=== PATIENT | female | born 1985 | race Caucasian/White ===

== ENCOUNTER 2016-08-18 17:03 | Emergency (ER) | payer OTHER ==
[2016-08-18 17:15] VITALS: BP 150/94; PULSE 107; TEMP 98.5; BMI 39.4
[2016-08-18] MEDS ORDERED: ALBUTEROL SO4 2.5/IPRATROPIUM 0.5 INH SOL 3 ML VIAL.NEB. NEB ONE ×4 (18:58→19:44)
[2016-08-18] MEDS ORDERED: predniSONE 20 MG TABLET (UD) ONE (18:59)
[2016-08-18] MEDS ORDERED: predniSONE 20 MG TABLET (UD) PO ONE (19:02)
--- NOTE | 2016-08-18 19:06 | PDOC ---
History of Present Illness - General Chief Complaint: Asthma Stated Complaint: ASTHMA/CHEST TIGHTNESS Time Seen by Provider: 08/18/16 19:02 History Source: Patient Exam Limitations: No Limitations - History of Present Illness Initial Comments: 08/18/16 19:03 31 yr female with cough wheezing for 3 days. Pt had URI symptoms last week now has cough , pt able to speak full sentences. no history of intubations, history of DM. Associated Symptoms: reports: cough Past History - Past Medical History Allergies/Adverse Reactions: Allergies Allergy/AdvReac Type Severity Reaction Status Date / Time No Known Allergies Allergy Verified 08/18/16 17:11 Home Medications: Ambulatory Orders Albuterol Sulfate Inhaler - [Ventolin HFA Inhaler -] 1 - 2 inh PO QID PRN Ondansetron [Zofran *Odt*] 4 mg SL TID #30 od.tablet 10/22/15 Albuterol Sulfate Inhaler - [Ventolin HFA Inhaler -] 1 - 2 inh PO Q4H #1 inhaler 08/18/16 Prednisone [Deltasone -] 40 mg PO DAILY #10 tablet 08/18/16 Asthma: Yes Diabetes: Yes Other medical history: obesity - Immunization History Immunization Up to Date: No - Psycho/Social/Smoking Cessation Hx Anxiety: No Suicidal Ideation: No Smoking History: Never smoked Have you smoked in the past 12 months: No Number of Cigarettes Smoked Daily: 0 Hx Alcohol Use: No Drug/Substance Use Hx: No Substance Use Type: None *Physical Exam - Vital Signs Last Vital Signs Temp Pulse Resp BP Pulse Ox 98.5 F 107 H 19 150/94 96 08/18/16 17:12 08/18/16 17:12 08/18/16 17:12 08/18/16 17:12 08/18/16 17:12 - Physical Exam General Appearance: Yes: Nourished, Appropriately Dressed HEENT: positive: EOMI, [place], TMs Normal, Pharynx Normal, Nasal Congestion Neck: negative: Tender Respiratory/Chest: positive: Normal Breath Sounds, Wheezing. negative: Chest Tender, Respiratory Distress Cardiovascular: positive: Regular Rhythm, Regular Rate Gastrointestinal/Abdominal: positive: Normal Bowel Sounds, Soft Musculoskeletal: positive: Normal Inspection Extremity: positive: Normal Capillary Refill, Normal Inspection, Normal Range of Motion Integumentary: positive: Normal Color, Dry, Warm Neurologic: positive: Fully Oriented, Alert, Normal Mood/Affect, Normal Response , Motor Strength 09/15 Medical Decision Making - Medical Decision Making 08/18/16 19:08 cc: asthma attack 2 days wheezing no fever, pulse ox 96% pt able to speak full sentences mild distress. 08/18/16 19:39 duoneb x3 prednisone 60mg 08/18/16 20:00 pulse ox 98% on room air after second duoneb signed out to Amie Garza LEGAL DIRECTOR for further management. CXR pending, mild exp wheeze will give third duoneb . 08/19/16 07:30 *DC/Admit/Observation/Transfer Diagnosis at time of Disposition: Acute asthma exacerbation Qualifiers: Asthma severity: mild intermittent Qualified Code(s): J45.21 - Mild intermittent asthma with (acute) exacerbation - Discharge Dispostion Disposition: HOME Condition at time of disposition: Improved - Prescriptions Prescriptions: Prednisone [Deltasone -] 40 mg PO DAILY #10 tablet Albuterol Sulfate Inhaler - [Ventolin HFA Inhaler -] 1 - 2 inh PO Q4H #1 inhaler - Referrals Referrals: Rolando Lemons MD [Staff Physician] - - Patient Instructions Printed Discharge Instructions: Asthma -- Adult Additional Instructions: drink pleanty of water to stay well hydrated take prednisone as directed next dose tomorrow morning use albuterol inhaler as directed follow with your doctor or the pulmonary doctor next week call Sunday to make appointment return to ER for any worsening symptoms
== END 2016-08-18 21:26 | disposition home or self-care (01) ==
LOC: JERFT 17:03
PROC: 3E0F7GC Introduction of Other Therapeutic Substance into Respiratory Tract, Via Natural or Artificial Opening (ICD-10-PCS; principal; 2016-08-18)
PROC: 3E0F7GC Introduction of Other Therapeutic Substance into Respiratory Tract, Via Natural or Artificial Opening (ICD-10-PCS; 2016-08-18)
DX: J45.21 Mild intermittent asthma with (acute) exacerbation (principal); E11.9 Type 2 diabetes mellitus without complications
CPT/HCPCS: 84703; 94640; 99281-25

== ENCOUNTER 2016-10-30 21:34 | Emergency (ER) | payer OTHER ==
[2016-10-30 21:48] VITALS: BP 123/85; PULSE 68; TEMP 98.6; BMI 38.0
[2016-10-30] MEDS ORDERED: IBUPROFEN 400 MG TABLET (FP) PO ONE ×2 (21:48→21:59)
--- NOTE | 2016-10-30 21:51 | PDOC ---
Rapid Medical Evaluation Chief Complaint: Sore Throat Time Seen by Provider: 10/30/16 21:47 Medical Evaluation: Allergies Allergy/AdvReac Type Severity Reaction Status Date / Time No Known Allergies Allergy Verified 08/18/16 17:11 10/30/16 21:47 I have performed a brief in-person evaluation of this patient. The patient presents with a chief complaint of: sore throat and fever Pertinent physical exam findings: Stable w/ no obvious tonsilar enlargement or exudates I have ordered the following: rapid strep and motrin The patient will proceed to the ED for further evaluation. 10/30/16 21:50
[2016-10-30] MEDS ORDERED: IBUPROFEN 600 MG TABLET (FP) PO ONE (21:59)
--- NOTE | 2016-10-30 22:09 | PDOC ---
History of Present Illness - General Chief Complaint: Sore Throat Stated Complaint: NECK PAIN Time Seen by Provider: 10/30/16 21:47 History Source: Patient Exam Limitations: No Limitations - History of Present Illness Initial Comments: 10/30/16 22:02 c/o sore throat for 7 days. no fever or chills. pt has history of asthma. no fever no chills. Associated Symptoms: denies: denies symptoms Past History - Past Medical History Allergies/Adverse Reactions: Allergies Allergy/AdvReac Type Severity Reaction Status Date / Time No Known Allergies Allergy Verified 10/30/16 21:48 Home Medications: Ambulatory Orders Albuterol Sulfate Inhaler - [Ventolin HFA Inhaler -] 1 - 2 inh PO QID PRN Ondansetron [Zofran *Odt*] 4 mg SL TID #30 od.tablet 10/22/15 Albuterol Sulfate Inhaler - [Ventolin HFA Inhaler -] 1 - 2 inh PO Q4H #1 inhaler 08/18/16 Prednisone [Deltasone -] 40 mg PO DAILY #10 tablet 08/18/16 Penicillin V Potassium [Pen Vee K -] 500 mg PO BID #20 tablet 10/30/16 Asthma: Yes Diabetes: Yes HTN: Yes - Immunization History Immunization Up to Date: No - Psycho/Social/Smoking Cessation Hx Anxiety: No Suicidal Ideation: No Smoking History: Never smoked Have you smoked in the past 12 months: No Number of Cigarettes Smoked Daily: 0 Hx Alcohol Use: No Drug/Substance Use Hx: No Substance Use Type: None Review of Systems - Review of Systems Able to Perform ROS?: Yes Comments:: 10/30/16 22:03 Is the patient limited Telugu proficient: No Constitutional: No: Symptoms Reported HEENTM: Yes: Symptoms Reported Respiratory: No: Symptoms reported Cardiac (ROS): No: Symptoms Reported ABD/GI: No: Symptoms Reported : No: Symptoms Reported Musculoskeletal: No: Symptoms Reported Integumentary: No: Symptoms Reported Neurological: No: Symptoms reported *Physical Exam - Vital Signs Last Vital Signs Temp Pulse Resp BP Pulse Ox 98.6 F 68 18 123/85 99 10/30/16 21:44 10/30/16 21:44 10/30/16 21:44 10/30/16 21:44 10/30/16 21:44 - Physical Exam General Appearance: Yes: Nourished, Appropriately Dressed HEENT: positive: EOMI, [place], TMs Normal, Pharynx Normal Neck: positive: Supple. negative: Tender, Lymphadenopathy (R), Lymphadenopathy (L) Respiratory/Chest: positive: Lungs Clear, Normal Breath Sounds. negative: Wheezing Cardiovascular: positive: Regular Rhythm, Regular Rate Gastrointestinal/Abdominal: positive: Normal Bowel Sounds, Soft Musculoskeletal: positive: Normal Inspection Extremity: positive: Normal Capillary Refill, Normal Inspection, Normal Range of Motion Integumentary: positive: Normal Color, Dry, Warm Neurologic: positive: Fully Oriented, Alert, Normal Mood/Affect, Normal Response , Motor Strength 09/15 ED Treatment Course - Medications Given in the ED: ED Medications Discontinued Medications Generic Name Dose Route Start Last Admin Trade Name Emmanuelq PRN Reason Stop Dose Admin Ibuprofen 800 mg 10/30/16 21:48 10/30/16 22:01 Motrin - PO 10/30/16 21:49 800 mg ONCE ONE Administration Ibuprofen 600 mg 10/30/16 21:59 10/30/16 22:02 Motrin - PO 10/30/16 22:00 Not Given ONCE ONE Medical Decision Making - Medical Decision Making 10/30/16 22:10 cc: sore throat for 7 days no fever non toxic eating and drinking well will get rapid strep motrin for pain 10/30/16 22:12 positive strep throat *DC/Admit/Observation/Transfer Diagnosis at time of Disposition: Strep throat - Discharge Dispostion Disposition: HOME Condition at time of disposition: Good - Prescriptions Prescriptions: Penicillin V Potassium [Pen Vee K -] 500 mg PO BID #20 tablet - Patient Instructions Additional Instructions: gargle with warm salt water 4-5 times a day take motrin for pain every 6hrs take the Amoxicillin as directed for 10 days follow with your medical doctor for follow up
== END 2016-10-30 22:22 | disposition home or self-care (01) ==
LOC: JERFT 21:34
DX: J02.0 Streptococcal pharyngitis (principal); J45.909 Unspecified asthma, uncomplicated; E11.9 Type 2 diabetes mellitus without complications; I10 Essential (primary) hypertension
CPT/HCPCS: 87070; 87077; 87430; 99281-25

== ENCOUNTER 2017-05-20 11:16 | Emergency (ER) | payer OTHER ==
[2017-05-20 11:20] VITALS: BP 137/86; PULSE 84; TEMP 97; BMI 39.4
[2017-05-20] MEDS ORDERED: KETOROLAC TROMETHAMINE 60 MG/2 ML VIAL IM ONE (12:33)
[2017-05-20] MEDS ORDERED: KETOROLAC TROMETHAMINE 60 MG/2 ML VIAL ONE (12:39)
--- NOTE | 2017-05-20 12:43 | PDOC ---
History of Present Illness - General Chief Complaint: Back Pain Stated Complaint: INJURY Time Seen by Provider: 05/20/17 11:27 - History of Present Illness Initial Comments: 05/20/17 12:34 CHIEF COMPLAINT: low back pain HISTORY OF PRESENT ILLNESS: 31 yo F with no PMH presents to [facility] with lower back pain s/p fall yesterday. Patient states she slipped on ice and fell straight onto her tailbone, and the pain worsened today. She denies any pain or loss of sensation to her legs, denies any loss of bowel or bladder function. PAST MEDICAL HISTORY: Denies past medical history FAMILY HISTORY: Denies SOCIAL HISTORY: Denies tobacco, alcohol, illicit drug use. SURGICAL HISTORY: Denies ALLERGIES: No known drug allergies REVIEW OF SYSTEMS General/Constitutional: Denies fever or chills. HEENT: Denies change in vision. Denies ear pain or discharge. Denies sore throat. Cardiovascular: Denies chest pain or shortness of breath. Gastrointestinal: No loss of bowel function. Denies nausea, vomiting, diarrhea or constipation. Denies rectal bleeding. Genitourinary: No loss of bladder function. Denies dysuria, frequency, or change in urination. Musculoskeletal: Low back pain. Denies joint or muscle swelling or pain. Denies neck or back pain. Skin and breasts: Denies rash or easy bruising. Neurologic: Denies vertigo, loss of consciousness, or loss of sensation. PHYSICAL EXAM General Appearance: Well-appearing, appropriately dressed. No apparent distress , no intoxication. HEENT: EOMI, PERRLA, normal ENT inspection, normal voice, TMs normal, pharynx normal. No conjunctival pallor. No photophobia, scleral icterus. Neck: Supple. Trachea midline. No tenderness, rigidity, carotid bruit, stridor , lymphadenopathy, or thyromegaly. Respiratory/Chest: Lungs CTAB. No shortness of breath, chest tenderness, respiratory distress, accessory muscle use. No crackles, rales, rhonchi, stridor , wheezing, dullness Cardiovascular: RRR. S1, S2. No JVD, murmur, bradycardia, tachycardia. Vascular Pulses: Dorsalis-Pedis (R): 2+, Dorsalis-Pedis (L): 2+ Gastrointestinal/Abdominal: Normal bowel sounds. Abdomen soft, non-distended. No tenderness or rebound tenderness. No organomegaly, pulsatile mass, guarding , hernia, hepatomegaly, splenomegaly. Lymphatic: No adenopathy, tenderness. Musculoskeletal/Extremities: Tenderness to b/l paravertebral muscles at L5. No midline tenderness to spine, sensory discrimination intact to b/l legs. FROM of all extremities, normal capillary refill. Pelvis Stable. No CVA tenderness. No tenderness to extremities, pedal edema, swelling, erythema or deformity. Integumentary: Appropriate color, dry, warm. No cyanosis, erythema, jaundice or rash Neurologic: family practice md II-XII intact. Fully oriented, alert. Appropriate mood/affect. Motor strength 5/5. No appreciable EOM palsy, facial droop or sensory deficit. 05/20/17 12:49 Past History - Past Medical History Allergies/Adverse Reactions: Allergies Allergy/AdvReac Type Severity Reaction Status Date / Time No Known Allergies Allergy Verified 05/20/17 11:20 Home Medications: Ambulatory Orders Cyclobenzaprine HCl 10 mg PO HS #7 tablet 05/20/17 Diclofenac Sodium [Voltaren -] 75 mg PO BID #14 tablet. 05/20/17 Asthma: Yes COPD: No Diabetes: Yes HTN: Yes - Immunization History Immunization Up to Date: No - Suicide/Smoking/Psychosocial Hx Smoking History: Never smoked Have you smoked in the past 12 months: No Number of Cigarettes Smoked Daily: 0 Hx Alcohol Use: No Drug/Substance Use Hx: No Substance Use Type: None *Physical Exam - Vital Signs Last Vital Signs Temp Pulse Resp BP Pulse Ox 97 F L 84 18 137/86 99 05/20/17 11:18 05/20/17 11:18 05/20/17 11:18 05/20/17 11:18 05/20/17 11:18 ED Treatment Course - ADDITIONAL ORDERS Additional order review: Laboratory Results 05/20/17 12:09 Urine HCG, Qual Negative - RADIOLOGY Radiology Studies Ordered: Category Date Time Status SPINE-LUMBAR SACRAL [RAD] Stat Radiology 05/20/17 11:53 Ordered Medical Decision Making - Medical Decision Making 05/20/17 12:43 31 yo F with no PMH presents to [facility] with lower back pain s/p fall yesterday. Patient is 18 days and . -upreg upreg negative -Lumbar sacral x-ray -Toradol IM 05/20/17 13:03 Will treat with NSAIDS, cyclobenzaprine. Rx's sent to pharm. Advised patient to take medication as prescribed and follow up with ortho within a week. Advised patient of signs and symptoms for return to ED. Patient verbalized understanding and agrees to plan. *DC/Admit/Observation/Transfer Diagnosis at time of Disposition: Low back pain Qualifiers: Chronicity: unspecified Back pain laterality: bilateral Sciatica presence: without sciatica Qualified Code(s): M54.5 - Low back pain - Discharge Dispostion Disposition: HOME Condition at time of disposition: Stable Admit: No - Prescriptions Prescriptions: Cyclobenzaprine HCl 10 mg PO HS #7 tablet Diclofenac Sodium [Voltaren -] 75 mg PO BID #14 tablet.dr - Referrals Referrals: Jeff Yeboah MD [Staff Physician] - - Patient Instructions Printed Discharge Instructions: DI for Low Back Pain Additional Instructions: Please take medications as prescribed. As discussed, do NOT drive, drink alcohol , or operate machinery while taking cyclobenzaprine. Follow up with orthopedics next week for further evaluation if symptoms persist. If you develop any loss of sensation to your legs, loss of bowel or bladder function, or any new or worsening symptoms, please return to the ER. - Post Discharge Activity Forms/Work/School Notes: Back to Work
== END 2017-05-20 13:17 | disposition home or self-care (01) ==
LOC: JERFT 11:16
PROC: 3E0233Z Introduction of Anti-inflammatory into Muscle, Percutaneous Approach (ICD-10-PCS; principal; 2017-05-20)
DX: M54.5 Low back pain (principal); W00.2XXA Other fall from one level to another due to ice and snow, initial encounter; Y93.89 Activity, other specified; Y92.89 Other specified places as the place of occurrence of the external cause; Y99.8 Other external cause status
CPT/HCPCS: 72100-TC; 84703; 96372; 99281-25

== ENCOUNTER 2017-11-04 21:06 | Emergency (ER) | payer OTHER ==
[2017-11-04 21:15] VITALS: BP 145/89; PULSE 86; TEMP 98; BMI 37.9
[2017-11-04] MEDS ORDERED: DEXAMETHASONE LIQUID 0.5 MG/5 ML 240 ML BULK BOTTLE PO ONE (21:38)
--- NOTE | 2017-11-04 21:43 | PDOC ---
History of Present Illness - General Chief Complaint: Asthma Stated Complaint: DIFICULTY BREATHING Time Seen by Provider: 11/04/17 21:38 - History of Present Illness Initial Comments: 11/04/17 21:39 32 y/o F with PMH of asthma and HTN with exacerbation of asthma today without relief from home inhaler. She is on prednisone at home and she took 20 mg's today, she has never been intubated or hospitalized for asthma. Past History - Past Medical History Allergies/Adverse Reactions: Allergies Allergy/AdvReac Type Severity Reaction Status Date / Time No Known Allergies Allergy Verified 11/04/17 21:15 Home Medications: Ambulatory Orders Albuterol 0.083% Nebulizer Ayesha [Ventolin 0.083%] 1 neb NEB Q4H 11/04/17 Albuterol Sulfate [Proair Hfa] 8.5 gm IH ASDIR PRN 11/04/17 Amlodipine Besylate 2.5 mg PO DAILY 11/04/17 Prednisone [Deltasone] 20 mg PO DAILY 11/04/17 SYMBICORT 160/4.5mcg - 2 puff IH DAILY 11/04/17 Asthma: Yes COPD: No Diabetes: Yes HTN: Yes - Immunization History Immunization Up to Date: No - Suicide/Smoking/Psychosocial Hx Smoking History: Never smoked Have you smoked in the past 12 months: No Number of Cigarettes Smoked Daily: 0 Information on smoking cessation initiated: No Hx Alcohol Use: No Drug/Substance Use Hx: No Substance Use Type: None Review of Systems - Review of Systems Comments:: NCAT EYES: EOMI ENT: Nares patent, ear canals and TM's normal HEART: S1 S2 normal Respiratory: diffuse expiratory wheezing no ronchi Abdomen: Soft NT ND Extremities: Full ROM Neuro: normal karthik and affect without deficits. 11/04/17 21:40 Respiratory: Yes: See HPI, Cough, Wheezing All Other Systems: Reviewed and Negative *Physical Exam - Vital Signs Last Vital Signs Temp Pulse Resp BP Pulse Ox 98.0 F 86 16 145/89 99 11/04/17 21:13 11/04/17 21:13 11/04/17 21:13 11/04/17 21:13 11/04/17 21:13 - Physical Exam Comments: NCAT EYES: EOMI ENT: Nares patent, ear canals and TM's normal HEART: S1 S2 normal Respiratory: diffuse expiratory wheezing no ronchi Abdomen: Soft NT ND Extremities: Full ROM Neuro: normal karthik and affect without deficits. 11/04/17 21:43 Medical Decision Making - Medical Decision Making I will start duo nebs and give decadron 11/04/17 21:43 11/04/17 22:59 no wheezing after second duo neb *DC/Admit/Observation/Transfer Diagnosis at time of Disposition: Asthma - Discharge Dispostion Disposition: HOME Condition at time of disposition: Improved Decision to Admit order: No - Referrals Referrals: Amol Beach MD [Non Staff, Medical] - Mehdi Simeon MD [Staff Physician] - Lalo Amaro MD [Non Staff, Medical] - Marylin Polanco MD [Non Staff, Medical] - Rolando Fofana MD [Non Staff, Medical] - Ross Rashid MD [Non Staff, Medical] - Lowell Shepard MD [Non Staff, Medical] - Jeff La MD [Non Staff, Medical] - - Patient Instructions Printed Discharge Instructions: Asthma -- Adult Additional Instructions: Please continue to use your home albuterol as needed. If your symptoms worsen return to the ER for futher evaluation, I have given you a list of local incident handler to follow up with please follow up with pulmonology in the next 1- 2 days for futher evaluation and treatment options. You were given a dose of steroids in the emergency room. you do not need to take your home steroids for the next 2 days. - Post Discharge Activity
[2017-11-04] MEDS: ALBUTEROL SO4 2.5/IPRATROPIUM 0.5 INH SOL 3 ML VIAL.NEB. NEB SCH (22:56)
== END 2017-11-04 23:06 | disposition home or self-care (01) ==
LOC: JERFT 21:06
PROC: 3E0F7GC Introduction of Other Therapeutic Substance into Respiratory Tract, Via Natural or Artificial Opening (ICD-10-PCS; principal; 2017-11-04)
PROC: 3E0F7GC Introduction of Other Therapeutic Substance into Respiratory Tract, Via Natural or Artificial Opening (ICD-10-PCS; 2017-11-04)
DX: J45.901 Unspecified asthma with (acute) exacerbation (principal); I10 Essential (primary) hypertension; E11.9 Type 2 diabetes mellitus without complications
CPT/HCPCS: 94640; 99281-25; J7620

== ENCOUNTER 2018-09-03 16:07 | Observation (INO) | payer OTHER ==
[2018-09-03 16:23] VITALS: BMI 35.4
--- NOTE | 2018-09-03 16:24 | PDOC ---
Rapid Medical Evaluation Chief Complaint: Chest Pain Time Seen by Provider: 09/03/18 16:20 Medical Evaluation: Allergies Allergy/AdvReac Type Severity Reaction Status Date / Time No Known Allergies Allergy Verified 11/04/17 21:15 09/03/18 16:22 I did a brief in person evaluation on this patient. CC: right sided CP HPI: Pt is a 33 YO female who complains of right sided CP x 1 day. Denies cough. Denies CV hx. Pt has a hx of HTN, DM and asthma. PE: Skin: Clear Chest: I can duplicate the pain upon palpation. Lungs: Clear Heart:RRR MS: Moves all extremities without difficulty Neuro: alert Psych: appropriate affect. I have ordered: CV protocol Pt will proceed to main ED for further evaluation. Discharge Disposition - Diagnosis Chest pain Qualifiers: Chest pain type: unspecified Qualified Code(s): R07.9 - Chest pain, unspecified - Referrals - Patient Instructions - Post Discharge Activity
--- NOTE | 2018-09-03 17:05 | PDOC ---
History of Present Illness - General Chief Complaint: Chest Pain Stated Complaint: Chest Pain Time Seen by Provider: 09/03/18 16:20 - History of Present Illness Initial Comments: 33 year old Thai speaking female with PMH of NIDDM, HTN, and asthma presenting with chest pain of sudden onset around 11 AM today. States that her pain is left sided and occasionally radiates to her left shoulder. Denies any SOB, nausea, vomiting, or other symptoms. Denies any chest trauma, recent increase in activity, or recent travel. She has had this chest pain in the past which has relieved after Advil use. She did not take any Advil today. Stats that the pain is worse with deep inspiration. She did have some mild blurry vision earlier but did not eat antyhign today because she did not have an appetite. Chest pain is not worse with movement or positional and it has gotten better but not completely remitted. No concerning family cardiac history or history of smoking. Denies, fevers, chills, cough, vomiting, or diarrhea. 09/03/18 17:45 Past History - Past Medical History Allergies/Adverse Reactions: Allergies Allergy/AdvReac Type Severity Reaction Status Date / Time No Known Allergies Allergy Verified 11/04/17 21:15 Home Medications: Ambulatory Orders Albuterol 0.083% Nebulizer Ayesha [Ventolin 0.083%] 1 neb NEB Q4H 11/04/17 Albuterol Sulfate [Proair Hfa] 8.5 gm IH ASDIR PRN 11/04/17 Amlodipine Besylate 2.5 mg PO DAILY 11/04/17 Prednisone [Deltasone] 20 mg PO DAILY 11/04/17 SYMBICORT 160/4.5mcg - 2 puff IH DAILY 11/04/17 Asthma: Yes COPD: No DVT: No Diabetes: Yes HTN: Yes - Surgical History Cholecystectomy: No - Immunization History Immunization Up to Date: No - Suicide/Smoking/Psychosocial Hx Smoking History: Never smoked Have you smoked in the past 12 months: No Number of Cigarettes Smoked Daily: 0 Information on smoking cessation initiated: No Hx Alcohol Use: No Drug/Substance Use Hx: No Substance Use Type: None Review of Systems - Review of Systems Constitutional: No: Chills, Diaphoresis, Loss of Appetite, Weakness HEENTM: Yes: Blurred Vision. No: Tearing Respiratory: No: Cough, Shortness of Breath Cardiac (ROS): Yes: Chest Pain. No: Irregular Heart Rate ABD/GI: Yes: Nausea, Poor Appetite, Poor Fluid Intake. No: Diarrhea, Vomiting : No: Dysuria, Discharge Musculoskeletal: No: Back Pain, Joint Pain, Joint Swelling Integumentary: No: Bruising, Change in Color, Lesions Neurological: No: Headache, Numbness, Paresthesia, Tremors, Weakness *Physical Exam - Vital Signs Last Vital Signs Temp Pulse Resp BP Pulse Ox 98.4 F 75 16 140/83 98 09/03/18 16:21 09/03/18 16:21 09/03/18 16:21 09/03/18 16:21 09/03/18 16:21 Heart Score/ECG Review - History History: Moderately suspicious - Electrocardiogram EKG: Non specific repolarization disturbance - Age Age: </= 45 - Risk Factors Risk Factors Heart Score: Yes Hx Hypertension, Yes Hx Diabetes, Yes Hx Obesity Based on the list above the patient has:: >/=3 risk factors or Hx atherosclerotic disease - Troponin Troponin: </= normal limit - Score Heart Score - Total: 4 ED Treatment Course - LABORATORY CBC & Chemistry Diagram: 09/03/18 16:55 09/03/18 16:55 Medical Decision Making - Medical Decision Making 33 year old female presenting with chest pain and a HS of 4. EKG demonstrating lateral wall T wave inversions which we believe are new because her self reported previous EKG was read to her as normal. Troponins neg x2 We discussed the patient and transmitted the EKGs to Dr. Aldridge who recommended that she be tele observed and and echo performed tomorrow. Orders placed and discussed with hospitalist. 09/03/18 20:40 *DC/Admit/Observation/Transfer Diagnosis at time of Disposition: Chest pain Qualifiers: Chest pain type: unspecified Qualified Code(s): R07.9 - Chest pain, unspecified - Discharge Dispostion Condition at time of disposition: Stable Decision to Admit order: Yes - Referrals Referrals: ON STAFF,NOT [Primary Care Provider] - - Patient Instructions - Post Discharge Activity
[2018-09-03 17:25] LABS: BASO % 1.2 % (0-2.0); EOS % 2.1 % (0-4.5); HEMATOCRIT 33.1 % (32.4-45.2); HEMOGLOBIN 11.1 GM/dL (10.7-15.3); LYMPH % 40.1 % (8-40); MCH 26.7 pg (25.7-33.7); MCHC 33.5 g/dl (32.0-36.0); MEAN CELL VOLUME 79.7 fl (80-96); MEAN PLT VOLUME 9.2 fl (7.5-11.1); MONO % 10.6 % (3.8-10.2); PLATELET COUNT 407 K/MM3 (134-434); RBC 4.15 M/mm3 (3.60-5.2); RDW 16.3 % (11.6-15.6); WHITE BLOOD COUNT 6.3 K/mm3 (4.0-10.0)
[2018-09-03 17:39] LABS: INR 1.06 (0.83-1.09); PROTHROMBIN TIME (PATIENT) 12.5 SEC (9.7-13.0)
[2018-09-03] MEDS ORDERED: ACETAMINOPHEN 500 MG TABLET (FP) PO ONE (17:49)
[2018-09-03 17:55] LABS: ALBUMIN 3.7 g/dl (3.4-5.0); ALK PHOS 53 U/L (45-117); ANION GAP 6 MMOL/L (8-16); BILIRUBIN,TOTAL 0.4 mg/dL (0.2-1); BLOOD UREA NITROGEN 15 mg/dL (7-18); CALCIUM 9.2 mg/dL (8.5-10.1); CHLORIDE 102 mmol/L (98-107); CO2 26 mmol/L (21-32); CREATININE 0.5 mg/dL (0.55-1.3); GLUCOSE,RANDOM 82 mg/dL (74-106); MAGNESIUM 2.2 mg/dL (1.8-2.4); POTASSIUM 4.1 mmol/L (3.5-5.1); SGOT/AST 13 U/L (15-37); SGPT/ALT 16 U/L (13-61); SODIUM 134 mmol/L (136-145); TOT PROT 8.1 g/dl (6.4-8.2)
[2018-09-03] MEDS ORDERED: ACETAMINOPHEN 325 MG TABLET (FP) ONE (17:58)
--- NOTE | 2018-09-03 18:04 | PDOC ---
Documentation entered by Jonelle Boyd SCRIBE, acting as scribe for Rey Mckeon MD. Rey Mckeon MD: This documentation has been prepared by the Deb chavarria Amanda, SCRIBE, under my direction and personally reviewed by me in its entirety. I confirm that the documentation accurately reflects all work, treatment, procedures, and medical decision making performed by me. Attending Attestation - Resident Resident Name: ChanelleArianasuniselene - ED Attending Attestation I have performed the following: I have examined & evaluated the patient, The case was reviewed & discussed with the resident, I agree w/resident's findings & plan, Exceptions are as noted - HPI HPI: 09/03/18 17:34 The patient is a 33 year old female with a significant past medical history of asthma and hypertension who presents to the ED with complaint of sudden onset of chest pain at 9AM this morning. She reports the pain is left sided with intermittent radiation to her left shoulder. Pt denies SOB. States that the pain is pressure-like. Not worsened with exertion or deep inspiration. 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 The patient denies SOB, headache, palpitations, dizziness. The patient denies fevers, chills, nausea, vomiting, diarrhea, or constipation. The patient denies hematuria, dysuria, frequency, or urgency. - Physicial Exam PE: 09/03/18 17:51 GENERAL: Awake, alert, and fully oriented, in no acute distress. HEAD: No signs of trauma EYES: PERRLA, EOMI, sclera anicteric, conjunctiva clear ENT: Auricles normal inspection, hearing grossly normal, nares patent, oropharynx clear without exudates. Moist mucosa NECK: Nontender, no stepoffs, Normal ROM, supple, no lymphadenopathy, JVD, or masses LUNGS: Breath sounds equal, clear to auscultation bilaterally. No wheezes, and no crackles HEART: Regular rate and rhythm, normal S1 and S2, no murmurs, rubs or gallops ABDOMEN: Soft, nontender, normoactive bowel sounds. No guarding, no rebound. No masses EXTREMITIES: Normal range of motion, no edema. No clubbing or cyanosis. No cords, erythema, or tenderness NEUROLOGICAL: Cranial nerves II through XII intact. 5/5 strength and sensation in all extremities, Normal speech, normal gait, normal cerebellar function SKIN: Warm, Dry, normal turgor, no rashes or lesions noted. - Medical Decision Making 09/03/18 18:29 33 F with HTN, DM presenting to ED with L sided chest pain. Pain is not exertional, very atypical in nature. However, pt with EKG that shows lateral TWIs. Will r/o ACS with serial troponins. She has some risk factors for ACS but given age, this is still an unlikely diagnosis. Pt PERC score 0, making PE unlikely. - Labs, trop x2 - CXR - Aspirin 09/03/18 18:30 Labs wnl Trop negative x1 Repeat EKG stable with lateral TWIs unchanged Will repeat 2nd trop after 4 hours and obtain another EKG 09/03/18 18:42 Pt signed out to oncoming attending at 7pm, pending 2nd troponin and repeat EKG Heart Score/ECG Review - History History: Slightly suspicious - Electrocardiogram EKG: Non specific repolarization disturbance - Age Age: </= 45 - Risk Factors Risk Factors Heart Score: Yes Hx Hypertension, Yes Hx Diabetes, Yes Hx Obesity Based on the list above the patient has:: >/=3 risk factors or Hx atherosclerotic disease - Troponin Troponin: </= normal limit - Score Heart Score - Total: 3
[2018-09-03] MEDS ORDERED: ASPIRIN 81 MG CHEWABLE TABLETS PO ONE (18:14)
[2018-09-03] MEDS ORDERED: ASPIRIN 81 MG CHEWABLE TABLETS ONE (18:20)
--- NOTE | 2018-09-03 21:36 | PN ---
Teaching Attending Note Name of Resident: Nahum Obrien ATTENDING PHYSICIAN STATEMENT I saw and evaluated the patient. I reviewed the resident's note and discussed the case with the resident. I agree with the resident's findings and plan as documented. SUBJECTIVE: Seen and examined; please refer to resident note for further historical information. Briefly, she presents with CP to L shoulder worse with deep inspiration. She has had these episodes in the past she has treated with advil; thus far in the ER she has had 2 negative troponin and EKG with lateral wall TWI ; no prior studies available and she tells us her EKG was normal. CV was called from ER and requested she be placed on tele obs. Chest pain free when I saw her. 10 sys ROS done and negative aside from HPI PMH, PSH, FH, SH reviewed Home Medications Medication Instructions Recorded Albuterol 0.083% Nebulizer Ayesha 1 neb NEB Q4H 11/04/17 [Ventolin 0.083%] Albuterol Sulfate [Proair Hfa] 8.5 gm IH ASDIR PRN 11/04/17 Amlodipine Besylate 2.5 mg PO DAILY 11/04/17 Prednisone [Deltasone] 20 mg PO DAILY 11/04/17 SYMBICORT 160/4.5mcg - 2 puff IH DAILY 11/04/17 OBJECTIVE: VS, labs, imaging reviewed NAD, AAO, resting comfortably in bed NC AT EOMI PERRLA RRR s1/2 no mgr Lungs CTAB, w/ sym exp NT ND +BS CN2-12 wnl, no fnd EKG reviewed; TWI in lateral leads Echo pending CXR reviewed ASSESSMENT AND PLAN: Patient presents with chest pain; placing on tele obs 1) Chest Pain -EKG noted; repeat in AM and obtain third troponin. PRN NTG if further chest pain -Followup echo, cardiology recs. Appreciate expert opinion -Checking lipids, A1c, TSH -Check D-dimer 2) Obesity -Manager Stars prior to DC 3) Asthma -No acute exacerbation 4) HTN -Continue amlodipine 5) NIDDM -Check A1c, SSI if needed Full code
[2018-09-03] MEDS ORDERED: ALBUTEROL SO4 0.083% IH SOL 2.5 MG/3 ML VIAL.NEB. NEB PRN (22:03)
--- NOTE | 2018-09-03 22:10 | HP ---
CHIEF COMPLAINT: chest pain PCP: HISTORY OF PRESENT ILLNESS: Patient is a 33 y/o F w/ PMHx NIDDM, HTN, asthma, p/w sudden onset left-sided chest pain at 11 am and in waves w/ radiation to L shoulder, no SOB, no nausea/ vomiting, no diaphoresis, worsening on deep inspiration, ROS otherwise negative. Pt has had prior brief episodes of chest pain treated with home ibuprofen. Afebrile w/ stable vitals on presentation, labs unremarkable including negative troponins x 2. EKG showed lateral lead t-wave inversions; none prior on record, Pt reports having had prior EKGs and being told they were normal throughout. Dr. Aldridge was called and consulted by ED, requested observation on telemetry with echocardiogram in the morning. Pt received ASA and tynlenol in ED and was completely asymptomatic at time of encounter. Recent Travel: PAST MEDICAL HISTORY: As per [facility] PAST SURGICAL HISTORY: None Social History: Smoking: No Alcohol: No Drugs: No Family History: Allergies No Known Allergies Allergy (Verified 11/04/17 21:15) HOME MEDICATIONS: Home Medications Medication Instructions Recorded Albuterol 0.083% Nebulizer Ayesha 1 neb NEB Q4H 11/04/17 [Ventolin 0.083%] Albuterol Sulfate [Proair Hfa] 8.5 gm IH ASDIR PRN 11/04/17 Amlodipine Besylate 2.5 mg PO DAILY 11/04/17 Prednisone [Deltasone] 20 mg PO DAILY 11/04/17 SYMBICORT 160/4.5mcg - 2 puff IH DAILY 11/04/17 REVIEW OF SYSTEMS As per [facility] PHYSICAL EXAMINATION Vital Signs - 24 hr 09/03/18 16:21 Temperature 98.4 F Pulse Rate 75 Respiratory 16 Rate Blood Pressure 140/83 O2 Sat by Pulse 98 Oximetry (%) GENERAL: A&Ox3, NAD HEENT: NC/AT, PERRLA, EOMI, MMM NECK: Normal range of motion, supple without lymphadenopathy, JVD, or masses. LUNGS: CTA b/l HEART: RRR no m/r/g ABDOMEN: +bs, soft, NT, ND MUSCULOSKELETAL: Normal range of motion at all joints. No bony deformities or tenderness. No CVA tenderness. UPPER EXTREMITIES: 2+ pulses, warm, well-perfused. No cyanosis. No clubbing. No peripheral edema. LOWER EXTREMITIES: 2+ pulses, warm, well-perfused. No calf tenderness. No peripheral edema. NEUROLOGICAL: internal medicine physician assistant, motor, sensory systems w/o focal deficit PSYCHIATRIC: Cooperative. Good eye contact. Appropriate mood and affect. SKIN: Warm, dry, normal turgor, no rashes or lesions noted, normal capillary refill. Laboratory Results - last 24 hr 09/03/18 09/03/18 09/03/18 16:55 16:55 16:55 WBC 6.3 RBC 4.15 Hgb 11.1 Hct 33.1 MCV 79.7 L MCH 26.7 MCHC 33.5 RDW 16.3 H Plt Count 407 MPV 9.2 Absolute Neuts (auto) 2.9 Neutrophils % 46.0 Lymphocytes % 40.1 H Monocytes % 10.6 H Eosinophils % 2.1 Basophils % 1.2 Nucleated RBC % 0 PT with INR 12.50 INR 1.06 Sodium 134 L Potassium 4.1 Chloride 102 Carbon Dioxide 26 Anion Gap 6 L BUN 15 Creatinine 0.5 L Creat Clearance w eGFR 143.91 Random Glucose 82 Calcium 9.2 Magnesium 2.2 Total Bilirubin 0.4 AST 13 L ALT 16 Alkaline Phosphatase 53 Creatine Kinase 196 H Creatine Kinase Index 0.7 CK-MB (CK-2) 1.4 Troponin I < 0.02 Total Protein 8.1 Albumin 3.7 Serum , Qual 09/03/18 09/03/18 20:04 20:04 WBC RBC Hgb Hct MCV MCH MCHC RDW Plt Count MPV Absolute Neuts (auto) Neutrophils % Lymphocytes % Monocytes % Eosinophils % Basophils % Nucleated RBC % PT with INR INR Sodium Potassium Chloride Carbon Dioxide Anion Gap BUN Creatinine Creat Clearance w eGFR Random Glucose Calcium Magnesium Total Bilirubin AST ALT Alkaline Phosphatase Creatine Kinase Creatine Kinase Index CK-MB (CK-2) Troponin I < 0.02 Total Protein Albumin Serum , Qual Negative ASSESSMENT/PLAN: 33 y/o F w/ PMHx NIDDM, HTN, asthma, p/w sudden onset left-sided chest pain #A: -presumed new TWI on lateral leads -negative troponins x 2 -no respiratory issues -sugars well controlled -asymptomatic on encounter but did report pleuritic pain #P -cardiology consulted by ED, Dr. Aldridge following -echocardiogram -trend troponins -d-dimer -lipid profile -A1c -restarted home inhalers -no IVF -f/u BMP, Mg, Phos -diabetic diet -Lovenox for DVT PPx -full code -observe on telemetry Visit type - Emergency Visit Emergency Visit: Yes Care time: The patient presented to the Emergency Department on the above date and was hospitalized for further evaluation of their emergent condition. - New Patient This patient is new to me today: Yes Date on this admission: 09/03/18 - Critical Care Critical Care patient: No
[2018-09-04 06:45] VITALS: TEMP 98.6
[2018-09-04 07:57] LABS: BASO % 1.3 % (0-2.0); EOS % 3.5 % (0-4.5); HEMATOCRIT 34.9 % (32.4-45.2); HEMOGLOBIN 11.4 GM/dL (10.7-15.3); LYMPH % 40.2 % (8-40); MCH 26.1 pg (25.7-33.7); MCHC 32.8 g/dl (32.0-36.0); MEAN CELL VOLUME 79.5 fl (80-96); MONO % 11.6 % (3.8-10.2); NEUT % 43.4 % (42.8-82.8); PLATELET COUNT 425 K/MM3 (134-434); RBC 4.39 M/mm3 (3.60-5.2); RDW 16.8 % (11.6-15.6); WHITE BLOOD COUNT 4.5 K/mm3 (4.0-10.0)
[2018-09-04 08:03] LABS: ANION GAP 6 MMOL/L (8-16); BLOOD UREA NITROGEN 10 mg/dL (7-18); CALCIUM 8.6 mg/dL (8.5-10.1); CHLORIDE 106 mmol/L (98-107); CO2 27 mmol/L (21-32); CREATININE 0.5 mg/dL (0.55-1.3); GLUCOSE,RANDOM 99 mg/dL (74-106); PHOSPHOROUS 3.8 mg/dL (2.5-4.9); POTASSIUM 4.6 mmol/L (3.5-5.1); SODIUM 139 mmol/L (136-145)
[2018-09-04] MEDS: INSULIN SLIDING SCALE (NOVOLOG) 1 VIAL SQ SCH ×2 (08:09→15:15)
[2018-09-04 08:10] LABS: CHOLESTEROL 142 mg/dL (50-200); HDL CHOLESTEROL 55 mg/dL (40-60); TRIGLYCERIDES 67 mg/dL (0-150)
--- NOTE | 2018-09-04 09:20 | CON.CARD ---
Consult Consult Specialty:: Cardiology Referred by:: Medicine Reason for Consultation:: chest pain - History of Present Illness Chief Complaint: chest pain History of Present Illness: 33F h/o DM, HTN, asthma with L side chest pain morning of admission. Radiated to L shoulder. no dypsnea, diaphoresis, edema. Has had prior episodes treated with ibuprofen at home. - Alcohol/Substance Use Hx Alcohol Use: No - Smoking History Smoking history: Never smoked Have you smoked in the past 12 months: No Aproximately how many cigarettes per day: 0 Home Medications - Allergies Allergies/Adverse Reactions: Allergies Allergy/AdvReac Type Severity Reaction Status Date / Time No Known Allergies Allergy Verified 11/04/17 21:15 - Home Medications Home Medications: Ambulatory Orders Albuterol 0.083% Nebulizer Ayesha [Ventolin 0.083%] 1 neb NEB Q4H 11/04/17 Albuterol Sulfate [Proair Hfa] 8.5 gm IH ASDIR PRN 11/04/17 Amlodipine Besylate 2.5 mg PO DAILY 11/04/17 Prednisone [Deltasone] 20 mg PO DAILY 11/04/17 SYMBICORT 160/4.5mcg - 2 puff IH DAILY 11/04/17 Vital Signs: Vital Signs Temperature 98.6 F 09/04/18 06:44 Pulse Rate 70 09/04/18 06:44 Respiratory Rate 16 09/03/18 16:21 Blood Pressure 129/77 09/04/18 06:44 O2 Sat by Pulse Oximetry (%) 95 09/04/18 06:44 - Other Data Labs, Other Data: CBC, BMP 09/04/18 06:20 09/04/18 06:20 INR, PTT INR 1.06 (0.83-1.09) 09/03/18 16:55 Troponin, BNP 09/03/18 09/03/18 09/04/18 16:55 20:04 06:20 Troponin I < 0.02 < 0.02 < 0.02 Troponin, BNP 09/03/18 09/03/18 09/04/18 16:55 20:04 06:20 Troponin I < 0.02 < 0.02 < 0.02 Assessment/Plan EKG: sinus, lateral TWI CXR: no acute process tele: chest pain - trop neg x 2 - echo pending - CTA pending DM - manage per primary HTN - continue home meds
[2018-09-04] MEDS ORDERED: BUDESONIDE/FORMETEROL FUMARATE 160/4.5 mcg INHALER IH SCH (10:00)
[2018-09-04] MEDS ORDERED: ENOXAPARIN NA (PORCINE) 40 MG/0.4 ML DISP.SYRIN SQ SCH (10:00)
--- NOTE | 2018-09-04 10:28 | EKG ---
Test Reason : Blood Pressure : / mmHG Vent. Rate : 072 BPM Atrial Rate : 072 BPM P-R Int : 142 ms QRS Dur : 084 ms QT Int : 412 ms P-R-T Axes : 048 045 042 degrees QTc Int : 451 ms NORMAL SINUS RHYTHM WITH SINUS ARRHYTHMIA T WAVE ABNORMALITY, CONSIDER LATERAL ISCHEMIA ABNORMAL ECG NO PREVIOUS ECGS AVAILABLE Confirmed by ROMELIA LAROSE MD ([id number]) on 09/04/2018 10:28:15 AM Referred By: Confirmed By:ROMELIA LAROSE MD
--- NOTE | 2018-09-04 10:28 | EKG ---
Test Reason : Blood Pressure : / mmHG Vent. Rate : 088 BPM Atrial Rate : 088 BPM P-R Int : 140 ms QRS Dur : 082 ms QT Int : 350 ms P-R-T Axes : 054 057 153 degrees QTc Int : 423 ms NORMAL SINUS RHYTHM T WAVE ABNORMALITY, CONSIDER INFEROLATERAL ISCHEMIA ABNORMAL ECG WHEN COMPARED WITH ECG OF 03-SEP-2018 18:09, NO SIGNIFICANT CHANGE WAS FOUND Confirmed by THUAN PARRA, ROMELIA ([id number]) on 09/04/2018 10:28:28 AM Referred By: Confirmed By:ROMELIA LAROSE MD
--- NOTE | 2018-09-04 10:29 | EKG ---
Test Reason : Blood Pressure : / mmHG Vent. Rate : 068 BPM Atrial Rate : 068 BPM P-R Int : 142 ms QRS Dur : 084 ms QT Int : 412 ms P-R-T Axes : 045 063 095 degrees QTc Int : 438 ms NORMAL SINUS RHYTHM WITH SINUS ARRHYTHMIA T WAVE ABNORMALITY, CONSIDER LATERAL ISCHEMIA ABNORMAL ECG WHEN COMPARED WITH ECG OF 03-SEP-2018 16:37, NO SIGNIFICANT CHANGE WAS FOUND Confirmed by THUAN PARRA, ROMELIA ([id number]) on 09/04/2018 10:28:41 AM Referred By: Confirmed By:ROMELIA LAROSE MD
--- NOTE | 2018-09-04 11:57 | ECHO ---
Name: JEANNETTE MORRIS Exam:Adult Echocardiogram Study Date: 09/04/2018 09:41 AM Age: 33 yrs Reason For Study: Chest pain Height: 63 in Weight: 220 lb BSA: 2.0 m2 MMode/2D Measurements & Calculations IVSd: 0.89 cm Ao root diam: 2.5 cm LVIDd: 4.6 cm LA dimension: 3.9 cm LVIDs: 2.9 cm LVPWd: 1.0 cm EDV(Teich): 98.5 ml LVOT diam: 1.9 cm ESV(Teich): 32.5 ml Doppler Measurements & Calculations MV E max kedar: 89.3 cm/sec Ao V2 max: 215.8 cm/sec MV A max kedar: 68.6 cm/sec Ao max P.6 mmHg MV E/A: 1.3 Ao V2 mean: 138.9 cm/sec Ao mean P.1 mmHg Ao V2 VTI: 42.1 cm XENIA(I,D): 2.0 cm2 XENIA(V,D): 2.0 cm2 LV V1 max P.4 mmHg SV(LVOT): 85.6 ml LV V1 mean P.9 mmHg LV V1 max: 153.0 cm/sec LV V1 mean: 103.3 cm/sec LV V1 VTI: 30.2 cm Med Peak E' Kedar: 8.4 cm/sec Med E/e': 10.6 Lat Peak E' Kedar: 12.1 cm/sec Lat E/e': 7.4 Procedure A two-dimensional transthoracic echocardiogram with color flow and Doppler was performed. Left Ventricle The left ventricular size, thickness and function are normal. The left ventricular ejection fraction is normal. Left Ventricular Filling pattern is normal for age. The left ventricular wall motion is cecily l. Right Ventricle The right ventricle is normal in size and function. Atria Normal left and right atrial size and function. Mitral Valve There is trivial mitral valve thickening. There is no mitral valve stenosis. There is trace to mild m itral regurgitation. Tricuspid Valve There is trivial tricuspid valve thickening. There is no tricuspid stenosis. There was insufficient T R detected to calculate RV systolic pressure. Aortic Valve The aortic valve is normal in structure and function. No hemodynamically significant valvular aortic stenosis. No aortic regurgitation is present. Pulmonic Valve The pulmonic valve is not well visualized. There is no pulmonic valvular stenosis. Mild pulmonic valv ular regurgitation. Great Vessels The aortic root is normal size. Pericardium/Pleura There is no pericardial effusion. Interpretation Summary The left ventricular size, thickness and function are normal The left ventricular ejection fraction is normal. The left ventricular wall motion is normal. The right ventricle is normal in size and function. Normal left and right atrial size and function. There is trace to mild mitral regurgitation. There was insufficient TR detected to calculate RV systolic pressure. Left Ventricular Filling pattern is normal for age. MD Celso Vo 09/04/2018 11:56 AM
--- NOTE | 2018-09-04 14:26 | CON.CARD ---
Consult Consult Specialty:: Cardiology Referred by:: Dr. Braxton Reason for Consultation:: Chest pain - History of Present Illness Chief Complaint: chest pain History of Present Illness: 33 F with reported h/o of chronically abnl ECG, DM presents for evaluation of chest "pinching" while at work with associated dizziness. Denies SOB, N/V or diaphoresis. Similar previous episodes, negative cardiac work up reported. In ER, mildly elevated D dimer, negative CTA. Echo normal EF, now having stress echo. 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: Alzheimer's, CVA, Dementia, Migraine, Multiple Sclerosis, Peripheral Neuropathy, Parkinson's, Seizure, Syncope, TIA, Vertigo, Other Pulmonary: Yes: Asthma Gastrointestinal: No: Ascites, Cancer, Constipation, Crohn's Disease, Diverticulitis, Diverticulosis, Esophageal Varices, Gastritis, GERD, GI Bleed, Hemorrhoids, Hiatal Hernia, Inflamatory Bowel Disease, Irritable Bowel Disease, Pancreatitis, Peptic Ulcer Disease, Ulcerative Colitis, Other Hepatobiliary: No: Cirrhosis, Cholelithiasis, Cholecystitis, Choledocholithiasis , Hepatitis A, Hepatitis B, Hepatitis C, Other Renal/: No: Renal Failure, Renal Inusuff, BPH, Cancer, Hematuria, Hemodialysis , Neurogenic Bladder, Renal Calculi, UTI, Other Reproductive: No: Ectopic , Endometriosis, Fibroids, PID, Polycystic Ovary Syndrome, Postmenopausal, Other Endocrine: Yes: Diabetes Mellitus - Alcohol/Substance Use Hx Alcohol Use: No History of Substance Use: reports: None - Smoking History Smoking history: Never smoked Have you smoked in the past 12 months: No Aproximately how many cigarettes per day: 0 - Social History ADL: Independent History of Recent Travel: No Home Medications - Allergies Allergies/Adverse Reactions: Allergies Allergy/AdvReac Type Severity Reaction Status Date / Time No Known Allergies Allergy Verified 11/04/17 21:15 - Home Medications Home Medications: Ambulatory Orders Albuterol 0.083% Nebulizer Ayesha [Ventolin 0.083%] 1 neb NEB Q4H 11/04/17 Albuterol Sulfate [Proair Hfa] 8.5 gm IH ASDIR PRN 11/04/17 Amlodipine Besylate 2.5 mg PO DAILY 11/04/17 Prednisone [Deltasone] 20 mg PO DAILY 11/04/17 SYMBICORT 160/4.5mcg - 2 puff IH DAILY 11/04/17 Cholecalciferol (Vitamin D3) [Vitamin D3] 5,000 unit PO 09/04/18 Metformin HCl [Glucophage] 500 mg DAILY 09/04/18 Family Disease History - Family Disease History Family History: Unremarkable Review of Systems - Review of Systems Constitutional: reports: No Symptoms Eyes: reports: No Symptoms HENT: reports: No Symptoms Neck: reports: No Symptoms Cardiovascular: reports: Chest Pain Respiratory: reports: No Symptoms Gastrointestinal: reports: No Symptoms Genitourinary: reports: No Symptoms Breasts: reports: No Symptoms Reported Musculoskeletal: reports: No Symptoms Integumentary: reports: No Symptoms Neurological: reports: Dizziness Endocrine: reports: No Symptoms Hematology/Lymphatic: reports: No Symptoms Psychiatric: reports: No Symptoms - Risk Factors Known Risk Factors: Yes: Diabetes Mellitus Vital Signs: Vital Signs Temperature 98.6 F 09/04/18 06:44 Pulse Rate 70 09/04/18 06:44 Respiratory Rate 16 09/03/18 16:21 Blood Pressure 129/77 09/04/18 06:44 O2 Sat by Pulse Oximetry (%) 95 09/04/18 06:44 Constitutional: Yes: No Distress, Calm Eyes: Yes: Conjunctiva Clear Respiratory: Yes: CTA Bilaterally Gastrointestinal: Yes: Soft, Abdomen, Obese JVD: No Carotid Bruit: No PMI: Non-Displaced Heart Sounds: Yes: S1, S2 Edema: No Neurological: Yes: Alert, Oriented ...Motor Strength: WNL Psychiatric: Yes: WNL - Other Data Labs, Other Data: CBC, BMP 09/04/18 06:20 09/04/18 06:20 INR, PTT INR 1.06 (0.83-1.09) 09/03/18 16:55 Troponin, BNP 09/03/18 09/03/18 09/04/18 16:55 20:04 06:20 Troponin I < 0.02 < 0.02 < 0.02 Troponin, BNP 09/03/18 09/03/18 09/04/18 16:55 20:04 06:20 Troponin I < 0.02 < 0.02 < 0.02 NSR with diffuse TWI, no ST elevation Echo: Report Reviewed Stress Echo: Pending Ejection Fraction %: LVEF > or = 40 % Imaging - Results Cat Scan: Image Reviewed EKG: Image Reviewed Problem List - Problems (1) Abnormal ECG Code(s): R94.31 - ABNORMAL ELECTROCARDIOGRAM [ECG] [EKG] (2) Chest pain Code(s): R07.9 - CHEST PAIN, UNSPECIFIED Qualifiers: Chest pain type: unspecified Qualified Code(s): R07.9 - Chest pain, unspecified (3) Asthma Code(s): J45.909 - UNSPECIFIED ASTHMA, UNCOMPLICATED Assessment/Plan IMP: 1. Chronically abnl ECG 2. Chest pain, atypical: Enzymes negative, normal EF REC: If stress echocardiogram is normal, ok for d/c home from CV perspective with outpatient f/u. Please call if any questions, thank you.
--- NOTE | 2018-09-04 14:41 | ECHO ---
Name: JEANNETTE MORRIS Exam:Dobutamine Stress Echocardiogram Study Date: 09/04/2018 01:54 PM Age: 33 yrs Reason For Study: CHEST PAIN Procedure Details: Exercise Stress Echocardiogram with 2D imaging. Stress Comments Abnormal T waves in the lateral leads. Abnormal T waves in the inferior leads. A treadmill exercise test according to Kyle protocol was performed. Target Heart Rate was achieved (85% of maximum age-predicted heart rate). Exercise Echocardiogram Negative exercise stress echocardiogram, adequate by heart rate criteria, without symptoms, diagnosti c EKG changes or echocardiographic evidence of ischemia. Interpretation Summary Exercise Stress Echocardiogram with 2D imaging Abnormal T waves in the lateral leads. Abnormal T waves in the inferior leads. A treadmill exercise test according to Kyle protocol was performed. Target Heart Rate was achieved (85% of maximum age-predicted heart rate). Negative exercise stress echocardiogram, adequate by heart rate criteria, without symptoms, diagnosti c EKG changes or echocardiographic evidence of ischemia Reading Physician: MD Celso Vo 09/04/2018 02:41 PM
[2018-09-04 15:13] VITALS: BP 141/85; PULSE 76
--- NOTE | 2018-09-04 16:19 | DS ---
Physical Exam: SUBJECTIVE: Patient seen and examined. Pt. denies any acute complaints states she feels fine. Denies chest pain or shortness of breath at this time. Pt. endorses feeling palpitations for the last 2 days intermittently and an episode of "feeling hot all over." OBJECTIVE: Vital Signs Period Temp Pulse Resp BP Sys/Coates Pulse Ox Last 24 Hr 98.4 F-98.6 F 70-76 16-18 129-141/77-85 95-100 PHYSICAL EXAM GENERAL: The patient is awake, alert, and fully oriented, in no acute distress. HEAD: Normal with no signs of trauma. EYES: sclera anicteric, conjunctiva clear. ENT: Ears normal, nares patent, oropharynx clear without exudates, moist mucous membranes. NECK: No carotid bruit LUNGS: Breath sounds equal, clear to auscultation bilaterally, no wheezes, no crackles, no accessory muscle use. HEART: Regular rate and rhythm, S1, S2 with systolic murmur? ABDOMEN: Soft, nontender, nondistended, normoactive bowel sounds, obese EXTREMITIES: 2+ radial pulses, warm, well-perfused, no calf tenderness, no edema. NEUROLOGICAL: Normal speech and gait PSYCH: Normal mood, normal affect. SKIN: Warm, dry, normal turgor, no rashes or lesions noted. LABS Laboratory Results - last 24 hr 09/03/18 09/03/18 09/03/18 16:55 16:55 16:55 WBC 6.3 RBC 4.15 Hgb 11.1 Hct 33.1 MCV 79.7 L MCH 26.7 MCHC 33.5 RDW 16.3 H Plt Count 407 MPV 9.2 Absolute Neuts (auto) 2.9 Neutrophils % 46.0 Lymphocytes % 40.1 H Monocytes % 10.6 H Eosinophils % 2.1 Basophils % 1.2 Nucleated RBC % 0 PT with INR 12.50 INR 1.06 D-Dimer Sodium 134 L Potassium 4.1 Chloride 102 Carbon Dioxide 26 Anion Gap 6 L BUN 15 Creatinine 0.5 L Creat Clearance w eGFR 143.91 POC Glucometer Random Glucose 82 Hemoglobin A1c % Calcium 9.2 Phosphorus Magnesium 2.2 Total Bilirubin 0.4 AST 13 L ALT 16 Alkaline Phosphatase 53 Creatine Kinase 196 H Creatine Kinase Index 0.7 CK-MB (CK-2) 1.4 Troponin I < 0.02 Total Protein 8.1 Albumin 3.7 Triglycerides Cholesterol Total LDL Cholesterol HDL Cholesterol Serum , Qual 09/03/18 09/03/18 09/04/18 20:04 20:04 02:15 WBC RBC Hgb Hct MCV MCH MCHC RDW Plt Count MPV Absolute Neuts (auto) Neutrophils % Lymphocytes % Monocytes % Eosinophils % Basophils % Nucleated RBC % PT with INR INR D-Dimer 512 H Sodium Potassium Chloride Carbon Dioxide Anion Gap BUN Creatinine Creat Clearance w eGFR POC Glucometer Random Glucose Hemoglobin A1c % Calcium Phosphorus Magnesium Total Bilirubin AST ALT Alkaline Phosphatase Creatine Kinase Creatine Kinase Index CK-MB (CK-2) Troponin I < 0.02 Total Protein Albumin Triglycerides Cholesterol Total LDL Cholesterol HDL Cholesterol Serum , Qual Negative 09/04/18 09/04/18 09/04/18 06:20 06:20 06:20 WBC 4.5 RBC 4.39 Hgb 11.4 Hct 34.9 MCV 79.5 L MCH 26.1 MCHC 32.8 RDW 16.8 H Plt Count 425 MPV 9.0 Absolute Neuts (auto) 1.9 Neutrophils % 43.4 Lymphocytes % 40.2 H Monocytes % 11.6 H Eosinophils % 3.5 Basophils % 1.3 Nucleated RBC % 0 PT with INR INR D-Dimer Sodium 139 Potassium 4.6 Chloride 106 Carbon Dioxide 27 Anion Gap 6 L BUN 10 Creatinine 0.5 L Creat Clearance w eGFR 143.91 POC Glucometer Random Glucose 99 Hemoglobin A1c % Calcium 8.6 Phosphorus 3.8 Magnesium 2.0 Total Bilirubin AST ALT Alkaline Phosphatase Creatine Kinase Creatine Kinase Index CK-MB (CK-2) Troponin I < 0.02 Total Protein Albumin Triglycerides 67 Cholesterol 142 Total LDL Cholesterol 81 HDL Cholesterol 55 Serum , Qual 09/04/18 09/04/18 06:20 15:05 WBC RBC Hgb Hct MCV MCH MCHC RDW Plt Count MPV Absolute Neuts (auto) Neutrophils % Lymphocytes % Monocytes % Eosinophils % Basophils % Nucleated RBC % PT with INR INR D-Dimer Sodium Potassium Chloride Carbon Dioxide Anion Gap BUN Creatinine Creat Clearance w eGFR POC Glucometer 111 Random Glucose Hemoglobin A1c % 6.1 Calcium Phosphorus Magnesium Total Bilirubin AST ALT Alkaline Phosphatase Creatine Kinase Creatine Kinase Index CK-MB (CK-2) Troponin I Total Protein Albumin Triglycerides Cholesterol Total LDL Cholesterol HDL Cholesterol Serum , Qual HOSPITAL COURSE: Date of Admission:09/03/18 Date of Discharge: 09/04/18 Pt. admitted under observation for reproducible chest pain. Troponins were negative. Pt. received ASA and Tylenol for Pain. EKG showed TWI in V3 and D- dimer elevated to 512 therefore decision was made to order Echo, CTA, and Exercise stress test which were all negative for acute pathology. Cardiology consult appreciated. Hospital course discussed and agreed upon with Pt. Minutes to complete discharge: 45 Discharge Summary Reason For Visit: CHEST PAIN Current Active Problems Abnormal ECG (Acute) Chest pain (Acute) Condition: Stable - Instructions Diet, Activity, Other Instructions: Grecia Choe Rio You were seen in the hospital for chest pain. It is unlikely that your chest pain was due to your heart based on the tests we ran in the hospital. Your echocardiogram was negative for any acute abnormalities. Your stress test was negative for any abnormalities. Referrals -Please make an appointment with your primary care doctor within 1 week of discharge. If you don't have one, make an appointment with our office at [address] [place] [address], [address] [place] [address]; Phone number [phone] -Please make and appointment with Dr. Davis (Electrocardiograph Operator) within 1 week If you experience severe chest pain, shortness of breath, nausea, vomiting, fevers, or sweats, please return to the emergency room immediately. Referrals: Leobardo Davis MD [Staff Physician] - 1 Week Moris Valdovinos MD [Staff Physician] - 1 Week Disposition: HOME - Home Medications Comprehensive Discharge Medication List: Ambulatory Orders Albuterol 0.083% Nebulizer Ayesha [Ventolin 0.083% Nebulizer Soln -] 1 neb NEB Q4H 11/04/17 Albuterol Sulfate [Proair Hfa] 8.5 gm IH ASDIR PRN 11/04/17 Amlodipine Besylate 2.5 mg PO DAILY 11/04/17 SYMBICORT 160/4.5mcg - 2 puff IH DAILY 11/04/17 Cholecalciferol (Vitamin D3) [Vitamin D3] 5,000 unit PO 09/04/18 Metformin HCl [Glucophage] 500 mg DAILY 09/04/18 This patient is new to me today: Yes Date on this admission: 09/04/18 Emergency Visit: Yes ED Registration Date: 09/03/18 Care time: The patient presented to the Emergency Department on the above date and was hospitalized for further evaluation of their emergent condition. Critical Care patient: No - Discharge Referral Referred to [facility] Med [facility].C.: No
--- NOTE | 2018-09-04 18:53 | PN ---
Teaching Attending Note Name of Resident: Dorian Granda ATTENDING PHYSICIAN STATEMENT I saw and evaluated the patient. I reviewed the resident's note and discussed the case with the resident. I agree with the resident's findings and plan as documented. SUBJECTIVE: No further chest discomfort. OBJECTIVE: Afebrile, Hemodynamically stable. Last Vital Signs Temp Pulse Resp BP Pulse Ox 98.6 F 76 18 141/85 100 09/04/18 06:44 09/04/18 15:13 09/04/18 15:13 09/04/18 15:13 09/04/18 15:13 HEENT - Atraumatic, Normocephalic. Heart - S1, S2, SM Lungs p clear to auscultation Abdomen- Soft, non-tender, Bowel Sounds normal. Extremities -no edema, no calf tenderness. Laboratory Results - last 24 hr 09/03/18 09/03/18 09/04/18 20:04 20:04 02:15 WBC RBC Hgb Hct MCV MCH MCHC RDW Plt Count MPV Absolute Neuts (auto) Neutrophils % Lymphocytes % Monocytes % Eosinophils % Basophils % Nucleated RBC % D-Dimer 512 H Sodium Potassium Chloride Carbon Dioxide Anion Gap BUN Creatinine Creat Clearance w eGFR POC Glucometer Random Glucose Hemoglobin A1c % Calcium Phosphorus Magnesium Troponin I < 0.02 Triglycerides Cholesterol Total LDL Cholesterol HDL Cholesterol Serum , Qual Negative 09/04/18 09/04/18 09/04/18 06:20 06:20 06:20 WBC 4.5 RBC 4.39 Hgb 11.4 Hct 34.9 MCV 79.5 L MCH 26.1 MCHC 32.8 RDW 16.8 H Plt Count 425 MPV 9.0 Absolute Neuts (auto) 1.9 Neutrophils % 43.4 Lymphocytes % 40.2 H Monocytes % 11.6 H Eosinophils % 3.5 Basophils % 1.3 Nucleated RBC % 0 D-Dimer Sodium 139 Potassium 4.6 Chloride 106 Carbon Dioxide 27 Anion Gap 6 L BUN 10 Creatinine 0.5 L Creat Clearance w eGFR 143.91 POC Glucometer Random Glucose 99 Hemoglobin A1c % Calcium 8.6 Phosphorus 3.8 Magnesium 2.0 Troponin I < 0.02 Triglycerides 67 Cholesterol 142 Total LDL Cholesterol 81 HDL Cholesterol 55 Serum , Qual 09/04/18 09/04/18 06:20 15:05 WBC RBC Hgb Hct MCV MCH MCHC RDW Plt Count MPV Absolute Neuts (auto) Neutrophils % Lymphocytes % Monocytes % Eosinophils % Basophils % Nucleated RBC % D-Dimer Sodium Potassium Chloride Carbon Dioxide Anion Gap BUN Creatinine Creat Clearance w eGFR POC Glucometer 111 Random Glucose Hemoglobin A1c % 6.1 Calcium Phosphorus Magnesium Troponin I Triglycerides Cholesterol Total LDL Cholesterol HDL Cholesterol Serum , Qual Discharge Medications Medication Instructions Recorded Albuterol 0.083% Nebulizer Ayesha 1 neb NEB Q4H 11/04/17 [Ventolin 0.083% Nebulizer Soln -] Albuterol Sulfate [Proair Hfa] 8.5 gm IH ASDIR PRN 11/04/17 Amlodipine Besylate 2.5 mg PO DAILY 11/04/17 SYMBICORT 160/4.5mcg - 2 puff IH DAILY 11/04/17 Cholecalciferol (Vitamin D3) 5,000 unit PO 09/04/18 [Vitamin D3] Metformin HCl [Glucophage] 500 mg DAILY 09/04/18 ASSESSMENT AND PLAN: 33 year old female with history of DM 2, HTN, Asthma, presents with Left sided chest pain, associated palpitations and lightheadedness. 1. Atypical CP, likely musculoskeletal, now resolved. Echo - normal. Troponin neg x 3 ECG - NSR, diffuse T wave inversion - chronic DDIMER positive - CTA Chest: no PE, no abnormal cardiopulmonary findings. Echo Stress Test - negative for ischemia Evaluated by Cardiology - for out-patient Cardio follow up. No further work-up required, medically stable for discharge. 2. DM 2 - Continue Metformin on discharge 3. Asthma - Stable - Continue Symbicort, Albuterol 4. HTN -Continue Norvasc.
== END 2018-09-04 17:02 | disposition home or self-care (01) ==
LOC: JER 16:07 → JERBED 20:38
PROVIDERS: ADMIT Internal Medicine
PROC: 3E013GC Introduction of Other Therapeutic Substance into Subcutaneous Tissue, Percutaneous Approach (ICD-10-PCS; principal; 2018-09-03)
DX: R07.9 Chest pain, unspecified (principal); R94.31 Abnormal electrocardiogram [ECG] [EKG]; I10 Essential (primary) hypertension; J45.909 Unspecified asthma, uncomplicated; E11.9 Type 2 diabetes mellitus without complications; E66.9 Obesity, unspecified; Z68.35 Body mass index [BMI] 35.0-35.9, adult
CPT/HCPCS: 36415; 71046-TC-FY; 71275-TC; 80048; 80053; 80061; 82550; 82553; 82962; 83036; 83721; 83735; 84100; 84484; 84703; 85025; 85379; 85610; 93005; 93010; 93306-TC; 93351; 96372; 99285-25; G0378

== ENCOUNTER 2018-11-16 20:02 | Emergency (ER) | payer OTHER ==
[2018-11-16 20:05] VITALS: BMI 37.2
[2018-11-16] MEDS ORDERED: FAMOTIDINE 20 MG/50 ML IVPB 20 MG/50 ML MG IVPB ONE ×2 (20:37→21:29)
[2018-11-16] MEDS ORDERED: METOCLOPRAMIDE HCL INJECTION 10 MG/2 ML VIAL IVPB ONE (20:37)
[2018-11-16] MEDS ORDERED: SODIUM CHLORIDE 0.9% 500 ML INFUS.BAG IV ONE (20:37)
[2018-11-16] MEDS ORDERED: METOCLOPRAMIDE HCL INJECTION 10 MG/2 ML VIAL ONE (20:40)
--- NOTE | 2018-11-16 20:55 | PDOC ---
History of Present Illness - General History Source: Patient Exam Limitations: Language Barrier (Montenegrin) - History of Present Illness Initial Comments: 11/16/18 20:50 Grecia Portillo is a Montenegrin-speaking 33F with PMH HTN, NIDDM, asthma who presents with one day of nausea and vomiting. Woke up this morning feeling nauseated with room-spinning dizziness and vomited twice. Denies any prodromal symptoms, recent illness/sick contacts, ingesting any foods or alcohol that could cause sickness. Denies fever/chills, abdominal pain, urinary symptoms, constipation/diarrhea. Does not deny possibility of , LMP 10/17/18, denies vaginal discharge or suprapubic pain, has been before but no children. PMH: NIDDM on 500mg qd metformin, HTN on 2.5mg qd amlodipine PSH: no prior abd surgeries All: NKDA 11/16/18 20:55 <Elmo Kilgore - Last Filed: 11/16/18 22:58> <Robin Carlton - Last Filed: 11/16/18 23:21> - General Chief Complaint: Lightheaded Stated Complaint: DIZZINESS/NAUSEA Time Seen by Provider: 11/16/18 20:18 Past History - Past Medical History Asthma: Yes COPD: No DVT: No Diabetes: Yes HTN: Yes - Surgical History Cholecystectomy: No - Immunization History Immunization Up to Date: No - Suicide/Smoking/Psychosocial Hx Smoking History: Never smoked Have you smoked in the past 12 months: No Number of Cigarettes Smoked Daily: 0 Hx Alcohol Use: No Drug/Substance Use Hx: No Substance Use Type: None <Elmo Kilgore - Last Filed: 11/16/18 22:58> <Robin Carlton - Last Filed: 11/16/18 23:21> - Past Medical History Allergies/Adverse Reactions: Allergies Allergy/AdvReac Type Severity Reaction Status Date / Time No Known Allergies Allergy Verified 11/16/18 20:05 Home Medications: Ambulatory Orders Albuterol 0.083% Nebulizer Ayesha [Ventolin 0.083% Nebulizer Soln -] 1 neb NEB Q4H 11/04/17 Albuterol Sulfate [Proair Hfa] 8.5 gm IH ASDIR PRN 11/04/17 Amlodipine Besylate 2.5 mg PO DAILY 11/04/17 SYMBICORT 160/4.5mcg - 2 puff IH DAILY 11/04/17 Cholecalciferol (Vitamin D3) [Vitamin D3] 5,000 unit PO DAILY 09/04/18 Metformin HCl [Glucophage] 500 mg DAILY 09/04/18 Meclizine HCl 25 mg PO Q12H PRN #6 tablet 11/16/18 Ondansetron HCl [Zofran] 6 mg PO BID PRN #6 tablet 11/16/18 Review of Systems - Review of Systems Constitutional: No: Chills, Fever, Weakness HEENTM: Yes: Other (room-spinning dizziness). No: Blurred Vision, Double Vision , Throat Pain Respiratory: No: Cough, Shortness of Breath Cardiac (ROS): No: Chest Pain, Edema, Lightheadedness, Syncope ABD/GI: Yes: Nausea, Vomiting. No: Constipated, Diarrhea : No: Burning, Dysuria, Discharge, Frequency Musculoskeletal: Yes: Muscle Pain. No: Symptoms Reported Integumentary: No: Symptoms Reported Neurological: Yes: Dizziness. No: Headache, Numbness, Unsteady Gait All Other Systems: Reviewed and Negative <Elmo Kilgore - Last Filed: 11/16/18 22:58> *Physical Exam - Vital Signs Last Vital Signs Temp Pulse Resp BP Pulse Ox 98.5 F 85 18 145/95 99 11/16/18 20:03 11/16/18 20:03 11/16/18 20:03 11/16/18 20:03 11/16/18 20:03 - Physical Exam General Appearance: Yes: Nourished, Appropriately Dressed, Apparent Distress, Moderate Distress, Obese HEENT: positive: Normal Voice, Symmetrical. negative: Scleral Icterus (R), Scleral Icterus (L), Muffled/Hoarse voice, Rhinorrhea, Hearing Decreased, Excessive drooling Neck: positive: Trachea midline, Supple Respiratory/Chest: positive: Lungs Clear, Normal Breath Sounds. negative: Respiratory Distress, Crackles, Rales, Rhonchi Cardiovascular: positive: Regular Rhythm, Regular Rate. negative: Murmur, Gallop/S3, Gallop/S4 Gastrointestinal/Abdominal: positive: Normal Bowel Sounds, Flat, Soft, Organomegaly. negative: Tender, Tenderness Musculoskeletal: positive: Normal Inspection Extremity: positive: Normal Capillary Refill, Normal Inspection, Normal Range of Motion Integumentary: positive: Normal Color, Dry, Warm Neurologic: positive: Fully Oriented, Alert, Normal Mood/Affect, Normal Response <Elmo Kilgore - Last Filed: 11/16/18 22:58> - Vital Signs Last Vital Signs Temp Pulse Resp BP Pulse Ox 98 F 74 18 140/96 98 11/16/18 20:15 11/16/18 20:15 11/16/18 20:15 11/16/18 20:15 11/16/18 20:15 <Christopher Carltonmo - Last Filed: 11/16/18 23:21> ED Treatment Course - LABORATORY CBC & Chemistry Diagram: 11/16/18 21:04 11/16/18 21:04 <Elmo Kilgore - Last Filed: 11/16/18 22:58> - LABORATORY CBC & Chemistry Diagram: 11/16/18 21:04 11/16/18 21:04 - ADDITIONAL ORDERS Additional order review: Laboratory Results 11/16/18 11/16/18 11/16/18 21:10 21:04 21:04 Sodium Potassium Chloride Carbon Dioxide Anion Gap BUN Creatinine Est GFR (CKD-EPI)AfAm Est GFR (CKD-EPI)NonAf Random Glucose Calcium Magnesium 2.3 Total Bilirubin AST ALT Alkaline Phosphatase Total Protein Albumin Lipase 171 Urine Color Yellow Urine Appearance Clear Urine pH 6.0 Ur Specific [place] 1.015 Urine Protein Negative Urine Glucose (UA) Negative Urine Ketones Negative Urine Blood Negative Urine Nitrite Negative Urine Bilirubin Negative Urine Urobilinogen 0.2 Ur Leukocyte Esterase Negative Urine HCG, Qual Negative 11/16/18 21:04 Sodium 137 Potassium 4.3 Chloride 105 Carbon Dioxide 25 Anion Gap 6 L BUN 12.9 Creatinine 0.6 Est GFR (CKD-EPI)AfAm 140.77 Est GFR (CKD-EPI)NonAf 121.46 Random Glucose 95 Calcium 8.4 L Magnesium Total Bilirubin 0.5 AST 9 L ALT 14 Alkaline Phosphatase 48 Total Protein 7.4 Albumin 3.6 Lipase Urine Color Urine Appearance Urine pH Ur Specific [place] Urine Protein Urine Glucose (UA) Urine Ketones Urine Blood Urine Nitrite Urine Bilirubin Urine Urobilinogen Ur Leukocyte Esterase Urine HCG, Qual 11/16/18 21:04 RBC 4.45 MCV 77.8 L MCHC 32.0 RDW 16.5 H MPV 8.6 Neutrophils % 59.4 D Lymphocytes % 26.7 D Monocytes % 10.2 Eosinophils % 2.9 Basophils % 0.8 - Medications Given in the ED: ED Medications Discontinued Medications Generic Name Dose Route Start Last Admin Trade Name Marilu PRN Reason Stop Dose Admin Famotidine/Sodium Chloride 20 mg in 50 mls @ 100 mls/hr 11/16/18 20:37 21:36 Pepcid 20 Mg Premixed Ivpb - IVPB 11/16/18 21:06 100 mls/hr ONCE ONE Administration Meclizine HCl 25 mg 11/16/18 20:59 11/16/18 21:36 Antivert - PO 11/16/18 21:00 25 mg ONCE ONE Administration Metoclopramide HCl 10 mg 11/16/18 20:37 11/16/18 21:23 Reglan Injection - IVPB 11/16/18 20:38 10 mg ONCE ONE Administration Sodium Chloride 1,000 ml 11/16/18 20:37 11/16/18 21:22 Normal Saline - IV 11/16/18 20:38 1,000 ml ONCE ONE Administration <Robin Carlton - Last Filed: 11/16/18 23:21> Medical Decision Making - Medical Decision Making 11/16/18 21:03 Grecia Portillo is a 33F with PMH HTN, NIDDM, and asthma presenting with one day of nausea and room-spinning dizziness. Given presentation, most likely ddx includes dehydration vs. electrolyte imbalance vs. acute gastroenteritis 2/2 food poisoning vs 1st trimester emesis gravidarum. Considered abdominal causes such as pancreatitis vs. choledocholithiasis, but patient has not had abdominal pain or recent heavy meals. Other OBGYN causes considered include ovarian disease vs. STI, less likely given lack of pelvic pain. Will obtain CMP+mag, CBC, lipase, UA, UC, urine test to evaluate. Giving 1L NS bolus with metaclopramide, famotidine, and meclizine for nausea. Will re-evaluate after medications taken effect. 11/16/18 23:04 Patient feels much better, ambulatory to restroom and tolerating PO water. All labs WNL, Upreg negative. Will discharge home with meclizine and zofran Rx <Elmo Kilgore - Last Filed: 11/16/18 22:58> *DC/Admit/Observation/Transfer <Elmo Kilgore - Last Filed: 11/16/18 22:58> <Robin Carlton - Last Filed: 11/16/18 23:21> Diagnosis at time of Disposition: Gastroenteritis, Dizziness, Vomiting - Discharge Dispostion Disposition: HOME Condition at time of disposition: Improved - Prescriptions Prescriptions: Meclizine HCl 25 mg PO Q12H PRN #6 tablet PRN Reason: vertigo Ondansetron HCl [Zofran] 6 mg PO BID PRN #6 tablet PRN Reason: Nausea - Referrals - Patient Instructions Printed Discharge Instructions: DI for Viral Gastroenteritis -- Adult Additional Instructions: Today you were evaluated for dizziness and nausea. You were given some medicines for nausea, including Reglan, Pepcid, and Antivert, as well as some IV fluids. We evaluated your blood for problems with your electrolytes which were all normal, checked for an infection in your urine, and performed a test which was negative. You likely just caught some food poisoning. Stay hydrated by drinking lots of fluids, eat bland foods like bread and crackers, and you should recover in a few days. Please see your doctor in 2-3 days for follow-up. If you experience fevers, abdominal pain, worsening nausea and vomiting, new headaches, muscle pain, or any new or concerning symptoms, please return to an emergency room. Print Language: TAJIK - Post Discharge Activity Forms/Work/School Notes: Back to Work
[2018-11-16] MEDS ORDERED: MECLIZINE HCL 25 MG TABLET (FP) PO ONE (20:59)
[2018-11-16 21:13] LABS: BASO % 0.8 % (0-2.0); EOS % 2.9 % (0-4.5); HEMATOCRIT 34.6 % (32.4-45.2); HEMOGLOBIN 11.1 GM/dL (10.7-15.3); LYMPH % 26.7 % (8-40); MCH 24.9 pg (25.7-33.7); MEAN CELL VOLUME 77.8 fl (80-96); MEAN PLT VOLUME 8.6 fl (7.5-11.1); MONO % 10.2 % (3.8-10.2); NEUT % 59.4 % (42.8-82.8); PLATELET COUNT 420 K/MM3 (134-434); RBC 4.45 M/mm3 (3.60-5.2); RDW 16.5 % (11.6-15.6); WHITE BLOOD COUNT 5.6 K/mm3 (4.0-10.0)
[2018-11-16] MEDS ORDERED: MECLIZINE HCL 25 MG TABLET (FP) ONE (21:29)
[2018-11-16 21:44] LABS: ALBUMIN 3.6 g/dl (3.4-5.0); BILIRUBIN,TOTAL 0.5 mg/dL (0.2-1); BLOOD UREA NITROGEN 12.9 mg/dL (7-18); CALCIUM 8.4 mg/dL (8.5-10.1); CREATININE 0.6 mg/dL (0.55-1.3); POTASSIUM 4.3 mmol/L (3.5-5.1); TOT PROT 7.4 g/dl (6.4-8.2)
[2018-11-16 21:44] LABS: URINE APPEARANCE CLEAR; URINE BILIRUBIN NEGATIVE (NEGATIVE); URINE COLOR YELLOW; URINE GLUCOSE (UA) NEGATIVE (NEGATIVE); URINE KETONE NEGATIVE (NEGATIVE); URINE LEUK ESTERASE NEGATIVE (NEGATIVE); URINE NITRITE NEGATIVE (NEGATIVE); URINE PROTEIN NEGATIVE (NEGATIVE); URINE UROBILINOGEN 0.2 mg/dL (0.2-1.0)
[2018-11-16 21:46] LABS: HCG,QUALITATIVE URINE Negative
[2018-11-16 22:03] VITALS: BP 140/96; PULSE 74; TEMP 98
--- NOTE | 2018-11-16 23:19 | PDOC ---
Documentation entered by Michele Kothari SCRIBE, acting as scribe for Robin Carlton MD. Robin Carlton MD: This documentation has been prepared by the Taye chavarria Collisia, SCRIBE, under my direction and personally reviewed by me in its entirety. I confirm that the documentation accurately reflects all work, treatment, procedures, and medical decision making performed by me. Attending Attestation - Resident Resident Name: JameElmo - ED Attending Attestation I have performed the following: I have examined & evaluated the patient, The case was reviewed & discussed with the resident, I agree w/resident's findings & plan, Exceptions are as noted - HPI HPI: 11/16/18 21:14 The patient is a 33 year old female with a significant past medical history of asthma, hypertension, and diabetes (on Metformin) who presents to the emergency department with room spinning dizziness for 1 day. She reports she feels like the spinning is made worse by movements of her head, especially to the right. The patient endorses some associated nausea and 2 episodes of NBNB vomiting with her symptoms. She denies eating any foods out of the norm or any known sick contacts. The patient denies any fever, chills, diarrhea, constipation or urinary symptoms. She denies any abdominal pain, chest pain, shortness of breath , headache, focal weakness/numbness. It is noted that the patient states that she is late on her menstrual period (lmp 10/17/18). She has never had similar sxs in the past. She denies any other symptoms or complaints. - Physicial Exam PE: 11/16/18 23:11 GENERAL: Awake, alert, and fully oriented, in no acute distress but appears uncomfortable HEAD: No signs of trauma EYES: PERRLA, EOMI, sclera anicteric, conjunctiva clear. No nystagmus ENT: Oropharynx clear without exudates. Moist mucosa NECK: Normal ROM, supple, no lymphadenopathy, JVD, or masses LUNGS: Breath sounds equal, clear to auscultation bilaterally. No wheezes, and no crackles HEART: Regular rate and rhythm, normal S1 and S2, no murmurs, rubs or gallops ABDOMEN: Soft, nontender, normoactive bowel sounds. No guarding, no rebound. No masses EXTREMITIES: Normal range of motion, no edema. No clubbing or cyanosis. No cords, erythema, or tenderness NEUROLOGICAL: Normal speech, cranial nerves intact, negative pronator drift, 5/ 5 strength in all 4 extremities, normal sensation to light touch in all 4 extremities, normal cerebellar exam, normal gait, normal tone. +pascual solo pike exam SKIN: Warm, Dry, normal turgor, no rashes or lesions noted. - Medical Decision Making 11/16/18 23:13 33yo F presents to the ED with room spinning dizziness a/w N/V. Symptoms are made worse by position. No headache. Vitals wnl Exam wnl, non focal neuro exam Symptoms have completely resolved after reglan, fluids, meclizine, pepcid, and IVF Pt is tolerating PO, requests DC home Will prescribe meclizine and zofran as needed at home She will f/u with her PMD within 2-3 days I discussed the physical exam findings, ancillary test results and final diagnoses with the patient. I answered all of the patient's questions. The patient was satisfied with the care received and felt comfortable with the discharge plan and treatment plan. The patient will call their primary care physician within 24 hours to arrange follow-up and will return to the Emergency Department with any new, persistent or worsening symptoms.
== END 2018-11-16 23:24 | disposition home or self-care (01) ==
LOC: JER 20:02
PROC: 3E033GC Introduction of Other Therapeutic Substance into Peripheral Vein, Percutaneous Approach (ICD-10-PCS; principal; 2018-11-16)
PROC: 3E033GC Introduction of Other Therapeutic Substance into Peripheral Vein, Percutaneous Approach (ICD-10-PCS; 2018-11-16)
PROC: 3E0337Z Introduction of Electrolytic and Water Balance Substance into Peripheral Vein, Percutaneous Approach (ICD-10-PCS; 2018-11-16)
DX: K52.9 Noninfective gastroenteritis and colitis, unspecified (principal); I10 Essential (primary) hypertension; E11.9 Type 2 diabetes mellitus without complications; Z79.84 Long term (current) use of oral hypoglycemic drugs
CPT/HCPCS: 36415; 80053; 81003; 83690; 83735; 84703; 85025; 87077; 87086; 96365; 96375; 99284-25

== ENCOUNTER 2018-12-08 11:26 | Emergency (ER) | payer OTHER | END 2018-12-08 12:46 | LOC: JER 11:26 → JERFT 12:46 ==

== ENCOUNTER 2019-01-21 16:42 | Emergency (ER) | payer OTHER ==
[2019-01-21 17:09] VITALS: BP 131/84; PULSE 72; TEMP 98.4; BMI 40.7
[2019-01-21] MEDS ORDERED: KETOROLAC TROMETHAMINE 60 MG/2 ML VIAL IM ONE (17:15)
[2019-01-21] MEDS ORDERED: CYCLOBENZAPRINE HCL 10 MG TABLET (FP) PO ONE (17:15)
--- NOTE | 2019-01-21 17:15 | PDOC ---
Rapid Medical Evaluation Chief Complaint: Back Pain Time Seen by Provider: 01/21/19 17:08 Medical Evaluation: Allergies Allergy/AdvReac Type Severity Reaction Status Date / Time No Known Allergies Allergy Verified 01/21/19 17:10 Vital Signs Temp Pulse Resp BP Pulse Ox 98.4 F 72 16 131/84 100 01/21/19 17:07 01/21/19 17:07 01/21/19 17:07 01/21/19 17:07 01/21/19 17:07 01/21/19 17:13 The patient presents with a chief complaint of: low back pain after lifting heavy item at work today, denies radiation of pain, no weakness, hx of the same I have performed a brief in-person evaluation of this patient. Pertinent physical exam findings: no vertebral tenderness, renee paraspinous tenderness at lumbar level I have ordered the following: toradol and flexeril The patient will proceed to the ED for further evaluation. 01/21/19 17:15 Discharge Disposition - Diagnosis Back pain - Referrals - Patient Instructions - Post Discharge Activity
[2019-01-21] MEDS ORDERED: KETOROLAC TROMETHAMINE 60 MG/2 ML VIAL ONE (17:50)
[2019-01-21] MEDS ORDERED: CYCLOBENZAPRINE HCL 10 MG TABLET (FP) ONE (17:50)
--- NOTE | 2019-01-21 18:18 | PDOC ---
History of Present Illness - General Chief Complaint: Back Pain Stated Complaint: BACK PAIN Time Seen by Provider: 01/21/19 17:08 - History of Present Illness Initial Comments: 01/21/19 18:13 33 y/o F w/ PMH of HTN, DM , and Asthma presents for evaluation of LBP without radiculopathy after trying to life a heavy bin at work today. Past History - Past Medical History Allergies/Adverse Reactions: Allergies Allergy/AdvReac Type Severity Reaction Status Date / Time No Known Allergies Allergy Verified 01/21/19 17:10 Home Medications: Ambulatory Orders Albuterol 0.083% Nebulizer Ayesha [Ventolin 0.083% Nebulizer Soln -] 1 neb NEB Q4H 11/04/17 Albuterol Sulfate [Proair Hfa] 8.5 gm IH ASDIR PRN 11/04/17 Amlodipine Besylate 2.5 mg PO DAILY 11/04/17 SYMBICORT 160/4.5mcg - 2 puff IH DAILY 11/04/17 Cholecalciferol (Vitamin D3) [Vitamin D3] 5,000 unit PO DAILY 09/04/18 Metformin HCl [Glucophage] 500 mg DAILY 09/04/18 Meclizine HCl 25 mg PO Q12H PRN #6 tablet 11/16/18 Ondansetron HCl [Zofran] 6 mg PO BID PRN #6 tablet 11/16/18 Methocarbamol [Robaxin -] 750 mg PO Q8H #20 tablet 12/08/18 Naproxen 500 mg PO BID PRN #20 tablet 12/08/18 Cyclobenzaprine HCl [Flexeril 10 mg] 10 mg PO HS PRN #10 tablet 01/21/19 Asthma: Yes COPD: No DVT: No Diabetes: Yes HTN: Yes - Surgical History Cholecystectomy: No - Immunization History Immunization Up to Date: No - Suicide/Smoking/Psychosocial Hx Smoking History: Never smoked Have you smoked in the past 12 months: No Number of Cigarettes Smoked Daily: 0 Hx Alcohol Use: No Drug/Substance Use Hx: No Substance Use Type: None Review of Systems - Review of Systems Musculoskeletal: Yes: Back Pain *Physical Exam - Vital Signs Last Vital Signs Temp Pulse Resp BP Pulse Ox 98.4 F 72 16 131/84 100 01/21/19 17:07 01/21/19 17:07 01/21/19 17:07 01/21/19 17:07 01/21/19 17:07 - Physical Exam Comments: 01/21/19 18:15 Lumbar spine skin color and temperature are normal. There is decreased range of motion. 5 out of 5 strength in bilateral lower extremities.Straight leg raise test is negative bilaterally. Thighs and calves are soft and nontender. There are no gross sensory motor deficits. Neurovascularly intact. Moderate left sided para lumbar musculature spasm. ED Treatment Course - Medications Given in the ED: ED Medications Discontinued Medications Generic Name Dose Route Start Last Admin Trade Name Marilu PRN Reason Stop Dose Admin Cyclobenzaprine HCl 5 mg 01/21/19 17:15 01/21/19 17:53 Flexeril - PO 01/21/19 17:16 5 mg ONCE ONE Administration Ketorolac Tromethamine 60 mg 01/21/19 17:15 01/21/19 17:54 Toradol Injection - IM 01/21/19 17:16 60 mg ONCE ONE Administration Medical Decision Making - Medical Decision Making 01/21/19 18:16 Flexeril at home, f/u with neurosurgey *DC/Admit/Observation/Transfer Diagnosis at time of Disposition: Back pain, Lumbar strain - Discharge Dispostion Disposition: HOME Condition at time of disposition: Stable Decision to Admit order: No - Referrals Referrals: Kristofer Katz MD, FAANS [Staff Physician] - - Patient Instructions Additional Instructions: Please take the muscle relaxer as directed. tylenol as directed for pain. Return to the emergency room if symptoms worsen. Follow up with neurosurgery in 1-2 days without fail for further evaluation and treatment options. - Post Discharge Activity Forms/Work/School Notes: Back to Work
== END 2019-01-21 18:33 | disposition home or self-care (01) ==
LOC: JERFT 16:42
PROC: 3E0233Z Introduction of Anti-inflammatory into Muscle, Percutaneous Approach (ICD-10-PCS; principal; 2019-01-21)
DX: S39.012A Strain of muscle, fascia and tendon of lower back, initial encounter (principal); X50.0XXA Overexertion from strenuous movement or load, initial encounter; Y93.89 Activity, other specified; Y92.89 Other specified places as the place of occurrence of the external cause; Y99.0 Civilian activity done for income or pay; I10 Essential (primary) hypertension; E11.9 Type 2 diabetes mellitus without complications; Z79.84 Long term (current) use of oral hypoglycemic drugs; J45.909 Unspecified asthma, uncomplicated
CPT/HCPCS: 96372; 99281-25

== ENCOUNTER 2019-01-22 20:47 | Emergency (ER) | payer OTHER ==
[2019-01-22 21:03] VITALS: BMI 40.7
--- NOTE | 2019-01-22 21:08 | PDOC ---
Rapid Medical Evaluation Chief Complaint: Constipation Time Seen by Provider: 01/22/19 20:59 Medical Evaluation: Allergies Allergy/AdvReac Type Severity Reaction Status Date / Time No Known Allergies Allergy Verified 01/21/19 17:10 01/22/19 21:02 Pt presents to the ER today for rectal pain. She states that she has pain when she defecates and notes that she filled the toilet bowl with blood. Exam: abdomen snt, no rebound or guarding. rectal exam deferred Orders; labs x-ray Pt to proceed to the ER for further evaluation Discharge Disposition - Diagnosis Rectal pain - Referrals - Patient Instructions - Post Discharge Activity
[2019-01-22 22:05] LABS: BASO % 0.7 % (0-2.0); EOS % 1.1 % (0-4.5); HEMATOCRIT 35.8 % (32.4-45.2); HEMOGLOBIN 11.4 GM/dL (10.7-15.3); LYMPH % 19.4 % (8-40); MCH 24.5 pg (25.7-33.7); MCHC 31.9 g/dl (32.0-36.0); MEAN CELL VOLUME 76.8 fl (80-96); MONO % 7.8 % (3.8-10.2); PLATELET COUNT 502 K/MM3 (134-434); RBC 4.67 M/mm3 (3.60-5.2); RDW 18.1 % (11.6-15.6); WHITE BLOOD COUNT 9.7 K/mm3 (4.0-10.0)
[2019-01-22 22:17] LABS: INR 1.08 (0.83-1.09); PROTHROMBIN TIME (PATIENT) 12.8 SEC (9.7-13.0)
[2019-01-22 22:32] LABS: ALBUMIN 4.2 g/dl (3.4-5.0); BILIRUBIN,TOTAL 0.4 mg/dL (0.2-1); BLOOD UREA NITROGEN 13.1 mg/dL (7-18); CALCIUM 10.2 mg/dL (8.5-10.1); CREATININE 0.8 mg/dL (0.55-1.3); POTASSIUM 4.3 mmol/L (3.5-5.1); TOT PROT 8.5 g/dl (6.4-8.2)
--- NOTE | 2019-01-22 22:51 | PDOC ---
Attending Attestation - Resident Resident Name: Rashad Gill - ED Attending Attestation I have performed the following: I have examined & evaluated the patient, The case was reviewed & discussed with the resident, I agree w/resident's findings & plan - HPI HPI: 01/23/19 05:08 see resident hpi - Physicial Exam PE: 01/23/19 05:08 agree with resident exam - Medical Decision Making 01/23/19 05:08 33-year-old female with constipation abdominal pain and rectal pain There is guaiac positive stool on rectal exam Plan for CT scan abdomen and pelvis If surgical cause or mass ruled out patient will likely require stool softeners on discharge
[2019-01-22] MEDS ORDERED: SODIUM CHLORIDE 0.9% 1000 ML INFUS.BAG IV ONE (23:09)
--- NOTE | 2019-01-22 23:23 | PDOC ---
History of Present Illness - General Chief Complaint: Constipation Stated Complaint: RECTUM PAIN Time Seen by Provider: 01/22/19 20:59 History Source: Patient Exam Limitations: Language Barrier (Family at bedside translating, pt refused consumer lender) - History of Present Illness Initial Comments: 01/22/19 23:22 33F with no PMH who presents with 1 week of worsening rectal pain, constipation , and rectal bleeding. The patient states that her last BM was 1 week ago. Denies abd surgery. States that it is too painful to have a BM. She states that there was bright red blood in the toilet. Denies lightheadedness, palpitations, syncope, or prior episodes like this. Denies fever, chills, nausea, vomiting, CP , SOB, or anterior abd pain. Past History - Past Medical History Allergies/Adverse Reactions: Allergies Allergy/AdvReac Type Severity Reaction Status Date / Time No Known Allergies Allergy Verified 01/21/19 17:10 Home Medications: Ambulatory Orders Albuterol 0.083% Nebulizer Ayesha [Ventolin 0.083% Nebulizer Soln -] 1 neb NEB Q4H 11/04/17 Albuterol Sulfate [Proair Hfa] 8.5 gm IH ASDIR PRN 11/04/17 Amlodipine Besylate 2.5 mg PO DAILY 11/04/17 SYMBICORT 160/4.5mcg - 2 puff IH DAILY 11/04/17 Cholecalciferol (Vitamin D3) [Vitamin D3] 5,000 unit PO DAILY 09/04/18 Metformin HCl [Glucophage] 500 mg DAILY 09/04/18 Meclizine HCl 25 mg PO Q12H PRN #6 tablet 11/16/18 Ondansetron HCl [Zofran] 6 mg PO BID PRN #6 tablet 11/16/18 Methocarbamol [Robaxin -] 750 mg PO Q8H #20 tablet 12/08/18 Naproxen 500 mg PO BID PRN #20 tablet 12/08/18 Cyclobenzaprine HCl [Flexeril 10 mg] 10 mg PO HS PRN #10 tablet 01/21/19 Asthma: Yes COPD: No DVT: No Diabetes: Yes HTN: Yes - Surgical History Cholecystectomy: No - Immunization History Immunization Up to Date: No - Suicide/Smoking/Psychosocial Hx Smoking History: Never smoked Have you smoked in the past 12 months: No Number of Cigarettes Smoked Daily: 0 Hx Alcohol Use: No Drug/Substance Use Hx: No Substance Use Type: None Review of Systems - Review of Systems Able to Perform ROS?: Yes Comments:: 01/22/19 23:25 GENERAL/CONSTITUTIONAL: No fever or chills. No weakness. HEAD, EYES, EARS, NOSE AND THROAT: No change in vision. No ear pain or discharge. No sore throat. CARDIOVASCULAR: No chest pain, palpitations, or lightheadedness. RESPIRATORY: No cough, wheezing, shortness of breath, or hemoptysis. GASTROINTESTINAL: + for constipation and rectal pain. No abdominal pain, nausea , vomiting, diarrhea. GENITOURINARY: No dysuria, frequency, hematuria, or change in urination. MUSCULOSKELETAL: No joint or muscle swelling or pain. No neck or back pain. SKIN: No rash or lesions. NEUROLOGIC: No headache, numbness, tingling, focal weakness, loss of consciousness, or change in strength/sensation. Is the patient limited Bengali proficient: No *Physical Exam - Vital Signs Last Vital Signs Temp Pulse Resp BP Pulse Ox 99.5 F 119 H 20 146/80 98 01/22/19 21:01 01/22/19 21:01 01/22/19 21:01 01/22/19 21:01 01/22/19 21:01 - Physical Exam Comments: 01/22/19 23:33 GENERAL: Well developed, well nourished. Awake and alert. Mild distress. Morbidly obese. HEENT: Normocephalic, atraumatic. Hearing grossly normal. Moist mucous membranes. PERRLA, EOMI. No conjunctival pallor. Sclera are non-icteric. NECK: Supple. Full ROM. No JVD. CARDIOVASCULAR: Regular rate and rhythm. No murmurs, rubs, or gallops. PULMONARY: No evidence of respiratory distress. Lungs clear to auscultation bilaterally. No wheezing, rales or rhonchi. ABDOMINAL: Soft. Non-tender. Non-distended. No rebound or guarding. GENITOURINARY: No CVA tenderness bilaterally. RECTAL: No fissures noted. Rectal tone intact. MUSCULOSKELETAL: Normal range of motion at all joints. No bony deformities or tenderness. EXTREMITIES: No cyanosis. No clubbing. No edema. No calf tenderness or swelling. SKIN: Warm and dry. Normal capillary refill. No rashes. No jaundice. NEUROLOGICAL: Alert, awake, appropriate. Cranial nerves 2-12 grossly intact. Normal speech. Gait is normal without ataxia. PSYCHIATRIC: Cooperative. Good eye contact. Appropriate mood and affect. ED Treatment Course - LABORATORY CBC & Chemistry Diagram: 01/22/19 21:38 01/22/19 21:38 - ADDITIONAL ORDERS Additional order review: Laboratory Results 01/22/19 01/22/19 21:38 21:38 PT with INR 12.80 INR 1.08 Sodium 138 Potassium 4.3 Chloride 102 Carbon Dioxide 24 Anion Gap 12 BUN 13.1 Creatinine 0.8 Est GFR (CKD-EPI)AfAm 113.86 Est GFR (CKD-EPI)NonAf 98.24 Random Glucose 119 H Calcium 10.2 H Total Bilirubin 0.4 AST 21 ALT 25 Alkaline Phosphatase 56 Total Protein 8.5 H Albumin 4.2 01/22/19 21:38 RBC 4.67 MCV 76.8 L MCHC 31.9 L RDW 18.1 H MPV 9.0 Neutrophils % 71.0 Lymphocytes % 19.4 D Monocytes % 7.8 Eosinophils % 1.1 Basophils % 0.7 - RADIOLOGY Radiology Studies Ordered: Category Date Time Status ABDOMEN & PELVIS CT WITH CONTR [CT] Stat CT Scan 01/22/19 23:07 Ordered Medical Decision Making - Medical Decision Making 01/23/19 00:14 33F with a PMH of morbid obesity who presents with 1 week of constipation. Rectal exam negative. Stool occult positive but H/H normal. Concern for internal hemorrhoids not palpated on exam. 01/23/19 04:[address] Had discussion regarding AMA if she does not do CT scan. Pt agrees to do scan. 01/23/19 06:[address] Pt signed out to Dr. Taylor pending CTAP. *DC/Admit/Observation/Transfer Diagnosis at time of Disposition: Rectal pain - Referrals Referrals: ON STAFF,NOT [Primary Care Provider] - - Patient Instructions - Post Discharge Activity
[2019-01-23 05:45] VITALS: BP 114/59; PULSE 67; TEMP 98.2
--- NOTE | 2019-01-23 07:28 | PDOC ---
*Physical Exam - Vital Signs Last Vital Signs Temp Pulse Resp BP Pulse Ox 98.2 F 67 18 114/59 L 98 01/23/19 05:44 01/23/19 05:44 01/23/19 05:44 01/23/19 05:44 01/23/19 05:44 ED Treatment Course - LABORATORY CBC & Chemistry Diagram: 01/22/19 21:38 01/22/19 21:38 - ADDITIONAL ORDERS Additional order review: Laboratory Results 01/23/19 01/22/19 01/22/19 06:22 23:10 21:38 PT with INR 12.80 INR 1.08 Sodium Potassium Chloride Carbon Dioxide Anion Gap BUN Creatinine Est GFR (CKD-EPI)AfAm Est GFR (CKD-EPI)NonAf Random Glucose Calcium Total Bilirubin AST ALT Alkaline Phosphatase Total Protein Albumin Serum , Qual Negative Stool Occult Blood Positive 01/22/19 21:38 PT with INR INR Sodium 138 Potassium 4.3 Chloride 102 Carbon Dioxide 24 Anion Gap 12 BUN 13.1 Creatinine 0.8 Est GFR (CKD-EPI)AfAm 113.86 Est GFR (CKD-EPI)NonAf 98.24 Random Glucose 119 H Calcium 10.2 H Total Bilirubin 0.4 AST 21 ALT 25 Alkaline Phosphatase 56 Total Protein 8.5 H Albumin 4.2 Serum , Qual Stool Occult Blood 01/22/19 21:38 RBC 4.67 MCV 76.8 L MCHC 31.9 L RDW 18.1 H MPV 9.0 Neutrophils % 71.0 Lymphocytes % 19.4 D Monocytes % 7.8 Eosinophils % 1.1 Basophils % 0.7 - Medications Given in the ED: ED Medications Discontinued Medications Generic Name Dose Route Start Last Admin Trade Name Freq PRN Reason Stop Dose Admin Sodium Chloride 1,000 ml 01/22/19 23:09 01/22/19 23:24 Normal Saline - IV 01/22/19 23:10 1,000 ml ONCE ONE Administration Medical Decision Making - Medical Decision Making 01/23/19 07:27 Patient signed out by Dr. Gill (PGY-3) and Dr. Land (Attending) 33 y/o with rectal pain/bleeding, constipation. Awaiting CT read. Patient reassessed @ bedside. Resting comfortably, no abdominal TTP. UA clean, Urine (-) 01/23/19 12:29 CTAP read as infectious/inflammatory proctitis Will discharge with abx and GI referral. I discussed the physical exam findings, ancillary test results and final diagnoses with the patient. I answered all of the patient's questions. The patient was satisfied with the care received and felt comfortable with the discharge plan and treatment plan. The patient will return to the Emergency Department with any new, persistent or worsening symptoms. *DC/Admit/Observation/Transfer Diagnosis at time of Disposition: Colitis - Discharge Dispostion Disposition: HOME Condition at time of disposition: Good Decision to Admit order: No - Prescriptions Prescriptions: Ciprofloxacin [Cipro -] 500 mg PO Q12H #14 tablet metroNIDAZOLE [Flagyl -] 500 mg PO BID #14 tablet - Referrals Referrals: ON STAFF,NOT [Primary Care Provider] - Diego Mandujano MD [Staff Physician] - - Patient Instructions Printed Discharge Instructions: DI for Colitis Additional Instructions: Ivania exploracin de mitzi de hanson estmago mostr inflamacin. En nerissa momento ests seguro para volver a casa. Hemos enviado dos antibiticos a hanson farmacia, asegrese de completar todo el curso de antibiticos. Riana ivania marianne de seguimiento con hanson mdico de atencin primaria en los prximos 3 topete. Hanson atencin no estar completa hasta que sea evaluado por un mdico de atencin primaria. Tambin hemos proporcionado ivania referencia a un gastroenterlogo o puede llamar a hanson compaa de seguros para obtener ivania lista de mdicos. Riana ivania marianne para ivania evaluacin adicional. Regrese al Departamento de Emergencias por cualquier sntoma nuevo / que empeore / relacionado. A cat scan of your stomach showed inflammation. At this time you are safe to go home. We have sent two antibiotics to your pharmacy, please make sure to complete the entire antibiotic course. Please make a follow up appointment with your primary care doctor in the next 3 days. Your care is not complete until you are evaluated by a primary care doctor. We have also provided a referral to a flute grinder or you can call your insurance company for a list of doctors. Please make an appointment for further evaluation. Return to the Emergency Department for any new/worsening/concerning symptoms. - Post Discharge Activity
[2019-01-23 09:30] LABS: URINE APPEARANCE CLEAR; URINE BILIRUBIN NEGATIVE (NEGATIVE); URINE COLOR YELLOW; URINE GLUCOSE (UA) NEGATIVE (NEGATIVE); URINE KETONE NEGATIVE (NEGATIVE)
[2019-01-23 09:31] LABS: PH,URINE 5.5 (5.0-8.0); URINE LEUK ESTERASE NEGATIVE (NEGATIVE); URINE NITRITE NEGATIVE (NEGATIVE); URINE PROTEIN NEGATIVE (NEGATIVE); URINE UROBILINOGEN 0.2 mg/dL (0.2-1.0)
[2019-01-23 19:57] LABS: URINE APPEARANCE CLEAR; URINE COLOR YELLOW
[2019-01-23 19:58] LABS: PH,URINE 5.5 (5.0-8.0); URINE BILIRUBIN NEGATIVE (NEGATIVE); URINE GLUCOSE (UA) NEGATIVE (NEGATIVE); URINE KETONE NEGATIVE (NEGATIVE); URINE LEUK ESTERASE NEGATIVE (NEGATIVE); URINE NITRITE NEGATIVE (NEGATIVE); URINE PROTEIN NEGATIVE (NEGATIVE); URINE UROBILINOGEN 0.2 mg/dL (0.2-1.0)
== END 2019-01-23 09:38 | disposition home or self-care (01) ==
LOC: JER 20:47
PROC: 3E0337Z Introduction of Electrolytic and Water Balance Substance into Peripheral Vein, Percutaneous Approach (ICD-10-PCS; principal; 2019-01-22)
DX: K62.89 Other specified diseases of anus and rectum (principal); E66.01 Morbid (severe) obesity due to excess calories; Z68.41 Body mass index [BMI] 40.0-44.9, adult
CPT/HCPCS: 36415; 74177-TC; 80053; 81003; 82272; 84703; 85025; 85610; 87086; 99283-25; J7030

== ENCOUNTER 2019-05-09 07:23 | Emergency (ER) | payer OTHER ==
[2019-05-09 07:46] VITALS: BMI 40.7
--- NOTE | 2019-05-09 08:01 | PDOC ---
History of Present Illness - General Chief Complaint: Back Pain Stated Complaint: BACK PAIN Time Seen by Provider: 05/09/19 08:01 History Source: Patient Exam Limitations: No Limitations - History of Present Illness Initial Comments: 05/09/19 08:05 33y F asthma, dm, chronic back pain presents with complaint of back pain. The pt notes the pain has been worse the pats few days, patient notes that the pain is more severe usually with heavy lifting, the pain is located in her lower back and radiates down her left leg -patient denies any associated numbness, tingling, fever, chills, focal weakness, urinary or bowel incontinence. No recent traumas or falls . the patient took Aleve with no significant improvement. Patient notes that she has given been giving a diagnosis of herniated disc by her doctor. Patient denies any abdominal pain, chest pain, shortness of breath. LMP was 2 weeks ago. ROS Constitutional - no reported Fever, Chills, HEENT: no reported vision changes, sore throat Respiratory: no reported cough, sob, hemoptysis Cardiac: no reported chest pain, palpitations, light headedness, leg swelling Abd/GI: no reported abd pain, nausea, vomiting, blood per rectum, melena, diarrhea : no reported dysuria, frequency, discharge Musculskelatal - +back pain, no reported joint swelling skin - no reported bruising, erythema, rash neurological: no reported headache, numbness, focal weakness, tingling, ataxia, hematologic: no reported easy bruising, easy bleeding Physicial Exam GENERAL: The patient is awake, alert, and fully oriented, Nontoxic - in no acute distress. HEAD: Normocephalic, atraumatic. EYES: extraocular movements intact, sclera anicteric, conjunctiva clear. ENT: Normal voice, Moist mucous membranes. NECK: Normal range of motion, supple LUNGS: Breath sounds equal, clear to auscultation bilaterally. No wheezes, no rhonchi, no rales. HEART: Regular rate and rhythm, normal S1 and S2 without murmur, rub or gallop. ABDOMEN: Soft, nontender, No guarding, no rebound. No CVA tenderness EXTREMITIES: Normal range of motion, no edema. BACK: No rashes, no stepoffs, crepitus, erthema, fluctuance, mild diffuse tenderness in lowe back. NEUROLOGICAL: No facial assymetry, Normal speech, PSYCH: Normal mood, normal affect. SKIN: Warm, Dry, normal turgor, Suspect possible sciatica, will give Toradol, flexeril will erassess Past History - Past Medical History Allergies/Adverse Reactions: Allergies Allergy/AdvReac Type Severity Reaction Status Date / Time No Known Allergies Allergy Verified 05/09/19 07:42 Home Medications: Ambulatory Orders Albuterol 0.083% Nebulizer Ayesha [Ventolin 0.083% Nebulizer Soln -] 1 neb NEB Q4H 11/04/17 Albuterol Sulfate [Proair Hfa] 8.5 gm IH ASDIR PRN 11/04/17 Amlodipine Besylate 2.5 mg PO DAILY 11/04/17 SYMBICORT 160/4.5mcg - 2 puff IH DAILY 11/04/17 Cholecalciferol (Vitamin D3) [Vitamin D3] 5,000 unit PO DAILY 09/04/18 Metformin HCl [Glucophage] 500 mg DAILY 09/04/18 Meclizine HCl 25 mg PO Q12H PRN #6 tablet 11/16/18 Ondansetron HCl [Zofran] 6 mg PO BID PRN #6 tablet 11/16/18 Methocarbamol [Robaxin -] 750 mg PO Q8H #20 tablet 12/08/18 Naproxen 500 mg PO BID PRN #20 tablet 12/08/18 Cyclobenzaprine HCl [Flexeril 10 mg] 10 mg PO HS PRN #10 tablet 01/21/19 Ciprofloxacin [Cipro -] 500 mg PO Q12H #14 tablet 01/23/19 metroNIDAZOLE [Flagyl -] 500 mg PO BID #14 tablet 01/23/19 Lidocaine 5% Patch [Lidoderm -] 1 patch TP DAILY #7 patch 05/09/19 Lidocaine 5% Patch [Lidoderm -] 1 patch TP DAILY #7 patch 05/09/19 Asthma: Yes COPD: No DVT: No Diabetes: Yes HTN: Yes Other medical history: back pain - Surgical History Cholecystectomy: No - Immunization History Immunization Up to Date: No - Psycho Social/Smoking Cessation Hx Smoking History: Never smoked Have you smoked in the past 12 months: No Number of Cigarettes Smoked Daily: 0 Information on smoking cessation initiated: No Hx Alcohol Use: No Drug/Substance Use Hx: No Substance Use Type: None *Physical Exam - Vital Signs Last Vital Signs Temp Pulse Resp BP Pulse Ox 98.2 F 75 18 169/79 98 05/09/19 07:42 05/09/19 07:42 05/09/19 07:42 05/09/19 07:42 05/09/19 07:42 Medical Decision Making - Medical Decision Making pt ken oneill at dischage seen ambulating comfortably will dc with supportive care I discussed the physical exam findings, ancillary test results and final diagnoses with the patient. I answered all of the patient's questions. The patient was satisfied with the care received and felt comfortable with the discharge plan and treatment plan. The patient will call their primary care physician within 24 hours to arrange follow-up and will return to the Emergency Department with any new, persistent or worsening symptoms. Discharge - Discharge Information Problems reviewed: Yes Clinical Impression/Diagnosis: Back pain Qualifiers: Back pain location: low back pain Chronicity: acute Back pain laterality: left Sciatica presence: with sciatica Sciatica laterality: sciatica of left side Qualified Code(s): M54.42 - Lumbago with sciatica, left side Condition: Improved Disposition: HOME - Admission No - Additional Discharge Information Prescriptions: Lidocaine 5% Patch [Lidoderm -] 1 patch TP DAILY #7 patch Lidocaine 5% Patch [Lidoderm -] 1 patch TP DAILY #7 patch - Follow up/Referral Referrals: julio cesar tovar [Other] - Patient Discharge Instructions Patient Printed Discharge Instructions: DI for Low Back Pain Additional Instructions: Por favor, nosotros el parche del dolor segn sea necesario. Por favor, vaya a abrams terapia fsica segn lo programado. Consulte a abrams cirujano ortopdico si tiene otros problemas. Por favor, vuelva a la disfuncin del rendimiento si tiene sntomas que empeoran, incluida la incapacidad para contener la orina o las heces u otros sntomas relacionados. - Post Discharge Activity
[2019-05-09] MEDS ORDERED: LIDOCAINE 5% TOPICAL PATCH TP ONE (08:16)
[2019-05-09] MEDS ORDERED: KETOROLAC TROMETHAMINE 30 MG/1 ML VIAL IM ONE ×2 (08:18→10:58)
[2019-05-09] MEDS ORDERED: LIDOCAINE 5% TOPICAL PATCH ONE ×2 (08:18→08:21)
[2019-05-09] MEDS ORDERED: KETOROLAC TROMETHAMINE 30 MG/1 ML VIAL ONE ×2 (08:21→11:02)
[2019-05-09] MEDS ORDERED: diazePAM 2 MG TABLET PO ONE (09:19)
[2019-05-09] MEDS ORDERED: diazePAM 2 MG TABLET ONE (09:26)
[2019-05-09 10:12] LABS: PH,URINE 7.5 (5.0-8.0); URINE APPEARANCE CLOUDY; URINE BILIRUBIN NEGATIVE (NEGATIVE); URINE COLOR YELLOW; URINE GLUCOSE (UA) NEGATIVE (NEGATIVE); URINE KETONE NEGATIVE (NEGATIVE); URINE LEUK ESTERASE NEGATIVE (NEGATIVE); URINE NITRITE NEGATIVE (NEGATIVE); URINE PROTEIN NEGATIVE (NEGATIVE); URINE UROBILINOGEN 0.2 mg/dL (0.2-1.0)
[2019-05-09] MEDS ORDERED: ACETAMINOPHEN 650 MG/20.3 ML ORAL SOLUTION (CUPS) PO ONE (10:59)
[2019-05-09] MEDS ORDERED: ACETAMINOPHEN 325 MG TABLET (FP) ONE (11:02)
[2019-05-09 11:55] VITALS: BP 156/78; PULSE 89; TEMP 98
[2019-05-09] MEDS ORDERED: LIDOCAINE PATCH REMOVAL MC SCH (22:00)
== END 2019-05-09 11:55 | disposition home or self-care (01) ==
LOC: JER 07:23
PROC: 3E0333Z Introduction of Anti-inflammatory into Peripheral Vein, Percutaneous Approach (ICD-10-PCS; principal; 2019-05-09)
PROC: 3E0333Z Introduction of Anti-inflammatory into Peripheral Vein, Percutaneous Approach (ICD-10-PCS; 2019-05-09)
DX: M54.42 Lumbago with sciatica, left side (principal); I10 Essential (primary) hypertension; E11.9 Type 2 diabetes mellitus without complications; Z79.84 Long term (current) use of oral hypoglycemic drugs; J45.909 Unspecified asthma, uncomplicated
CPT/HCPCS: 81003; 84703; 99281-25

== ENCOUNTER 2019-05-24 11:41 | Emergency (ER) | payer OTHER ==
[2019-05-24 12:16] VITALS: BP 146/85; PULSE 98; TEMP 98.8; BMI 40.7
[2019-05-24] MEDS ORDERED: KETOROLAC TROMETHAMINE 60 MG/2 ML VIAL IM ONE (13:06)
--- NOTE | 2019-05-24 13:08 | PDOC ---
History of Present Illness - General Chief Complaint: Pain, Acute Stated Complaint: BACK/LEG PAIN Time Seen by Provider: 05/24/19 12:21 - History of Present Illness Initial Comments: 05/24/19 13:07 CHIEF COMPLAINT: left lower back pain HISTORY OF PRESENT ILLNESS: 33 yo F with hx of back pain presents to [facility] with back pain x 6 months. Patient had CTAP in 01/30 positive for disc bulge from L3-S1. Patient reports that she saw an orthopedist and went to three sessions of physical therapy but has not experienced any relief of her symptoms and in the past few days the pain has gotten worse and is radiating down her R leg. She has taken cyclobenzaprine, tinazidine, and naproxen without relief. She denies any loss of bowel or bladder function, denies loss of sensation to her legs, and is full ambulatory in ED. No recent travel or sick contacts. PAST MEDICAL HISTORY: Denies past medical history FAMILY HISTORY: Denies SOCIAL HISTORY: Denies tobacco, alcohol, illicit drug use. SURGICAL HISTORY: Denies ALLERGIES: No known drug allergies REVIEW OF SYSTEMS General/Constitutional: Denies fever or chills. Denies weakness, weight change. HEENT: Denies change in vision. Denies ear pain or discharge. Denies sore throat. Cardiovascular: Denies chest pain or shortness of breath. Respiratory: Denies cough, wheezing, or hemoptysis. Gastrointestinal: Denies nausea, vomiting, diarrhea or constipation. Denies rectal bleeding. Genitourinary: Denies dysuria, frequency, or change in urination. Musculoskeletal: Chronic lower back pain radiating to R leg. Skin and breasts: Denies rash or easy bruising. Neurologic: Denies headache, vertigo, loss of consciousness, or loss of sensation. Psychiatric: Denies depression or anxiety. PHYSICAL EXAM General Appearance: Well-appearing, appropriately dressed. No apparent distress , no intoxication. HEENT: EOMI, PERRLA, normal ENT inspection, normal voice, TMs normal, pharynx normal. No conjunctival pallor. No photophobia, scleral icterus. Neck: Supple. Trachea midline. No tenderness, rigidity, carotid bruit, stridor , lymphadenopathy, or thyromegaly. Respiratory/Chest: Lungs CTAB. No shortness of breath, chest tenderness, respiratory distress, accessory muscle use. No crackles, rales, rhonchi, stridor , wheezing, dullness Cardiovascular: RRR. S1, S2. No JVD, murmur, bradycardia, tachycardia. Vascular Pulses: Dorsalis-Pedis (R): 2+, Dorsalis-Pedis (L): 2+ Gastrointestinal/Abdominal: Normal bowel sounds. Abdomen soft, non-distended. No tenderness or rebound tenderness. No organomegaly, pulsatile mass, guarding , hernia, hepatomegaly, splenomegaly. Lymphatic: No adenopathy, tenderness. Musculoskeletal/Extremities: +TTP to b/l paravertebral muscles at L3-L5. No loss of sensation to b/l lower extremities, patient fully ambulatory. Normal inspection. FROM of all extremities, normal capillary refill. Pelvis Stable. No CVA tenderness. No tenderness to extremities, pedal edema, swelling, erythema or deformity. Integumentary: Appropriate color, dry, warm. No cyanosis, erythema, jaundice or rash Neurologic: municipal [employer] II-XII intact. Fully oriented, alert. Appropriate mood/affect. Motor strength 5/5. No appreciable EOM palsy, facial droop or sensory deficit. Past History - Past Medical History Allergies/Adverse Reactions: Allergies Allergy/AdvReac Type Severity Reaction Status Date / Time No Known Allergies Allergy Verified 05/09/19 07:42 Home Medications: Ambulatory Orders Albuterol 0.083% Nebulizer Ayesha [Ventolin 0.083% Nebulizer Soln -] 1 neb NEB Q4H 11/04/17 Albuterol Sulfate [Proair Hfa] 8.5 gm IH ASDIR PRN 11/04/17 Amlodipine Besylate 2.5 mg PO DAILY 11/04/17 SYMBICORT 160/4.5mcg - 2 puff IH DAILY 11/04/17 Cholecalciferol (Vitamin D3) [Vitamin D3] 5,000 unit PO DAILY 09/04/18 Metformin HCl [Glucophage] 500 mg DAILY 09/04/18 Meclizine HCl 25 mg PO Q12H PRN #6 tablet 11/16/18 Ondansetron HCl [Zofran] 6 mg PO BID PRN #6 tablet 11/16/18 Methocarbamol [Robaxin -] 750 mg PO Q8H #20 tablet 12/08/18 Naproxen 500 mg PO BID PRN #20 tablet 12/08/18 Cyclobenzaprine HCl [Flexeril 10 mg] 10 mg PO HS PRN #10 tablet 01/21/19 Ciprofloxacin [Cipro -] 500 mg PO Q12H #14 tablet 01/23/19 metroNIDAZOLE [Flagyl -] 500 mg PO BID #14 tablet 01/23/19 Lidocaine 5% Patch [Lidoderm -] 1 patch TP DAILY #7 patch 05/09/19 Lidocaine 5% Patch [Lidoderm -] 1 patch TP DAILY #7 patch 05/09/19 Lidocaine 5% Patch [Lidoderm -] 1 patch TP DAILY #7 patch 05/24/19 Asthma: Yes COPD: No DVT: No Diabetes: Yes HTN: Yes - Surgical History Cholecystectomy: No - Immunization History Immunization Up to Date: No - Psycho Social/Smoking Cessation Hx Smoking History: Never smoked Have you smoked in the past 12 months: No Number of Cigarettes Smoked Daily: 0 Hx Alcohol Use: No Drug/Substance Use Hx: No Substance Use Type: None *Physical Exam - Vital Signs Last Vital Signs Temp Pulse Resp BP Pulse Ox 98.8 F 98 H 19 146/85 97 05/24/19 12:06 05/24/19 12:06 05/24/19 12:06 05/24/19 12:06 05/24/19 12:06 Medical Decision Making - Medical Decision Making 05/24/19 13:14 33 yo F with hx of back pain presents to [facility] with back pain x 6 months. Pt denies any chance of , LMP 12/15. -Toradol IM -lidocaine patch Advised patient to take medication as prescribed and follow up with orthopedics within the next week. Advised patient of signs and symptoms for return to ED. Patient verbalized understanding and agrees to plan. Discharge - Discharge Information Problems reviewed: Yes Clinical Impression/Diagnosis: Lumbago with sciatica, right side Qualifiers: Chronicity: chronic Back pain laterality: right Qualified Code(s): M54.41 - Lumbago with sciatica, right side Condition: Stable Disposition: HOME - Admission No - Additional Discharge Information Prescriptions: Lidocaine 5% Patch [Lidoderm -] 1 patch TP DAILY #7 patch - Follow up/Referral Referrals: Iván Heath MD [Primary Care Provider] - Dorian Souza [Non Staff, Medical] - - Patient Discharge Instructions Patient Printed Discharge Instructions: DI for Herniated Disc, DI for Lumbar Radiculopathy Print Language: AMERICAN - Post Discharge Activity Work/Back to School Note: Back to Work
[2019-05-24] MEDS ORDERED: KETOROLAC TROMETHAMINE 60 MG/2 ML VIAL ONE (13:15)
[2019-05-24] MEDS ORDERED: LIDOCAINE 5% TOPICAL PATCH ONE (13:15)
[2019-05-24] MEDS ORDERED: LIDOCAINE 5% TOPICAL PATCH TP ONE (13:23)
[2019-05-24] MEDS ORDERED: LIDOCAINE PATCH REMOVAL MC SCH ×2 (22:00)
[2019-05-25] MEDS ORDERED: LIDOCAINE 5% TOPICAL PATCH TP ONE (13:10)
== END 2019-05-24 13:29 | disposition home or self-care (01) ==
LOC: JERFT 11:41
PROC: 3E0233Z Introduction of Anti-inflammatory into Muscle, Percutaneous Approach (ICD-10-PCS; principal; 2019-05-24)
DX: M54.41 Lumbago with sciatica, right side (principal); I10 Essential (primary) hypertension; E11.9 Type 2 diabetes mellitus without complications; Z79.84 Long term (current) use of oral hypoglycemic drugs; J45.909 Unspecified asthma, uncomplicated
CPT/HCPCS: 96372; 99282-25

== ENCOUNTER 2022-10-04 15:14 | Emergency (ER) | payer OTHER ==
[2022-10-04 15:28] VITALS: BP 128/81; PULSE 93; RESP 18; TEMP 98; BMI 35.4
[2022-10-04] MEDS ORDERED: SODIUM CHLORIDE 0.9% 500 ML INFUS.BAG IV ONE (16:28)
[2022-10-04] MEDS ORDERED: ACETAMINOPHEN 1000 MG/100 ML BAG IVPB ONE (16:28)
[2022-10-04] MEDS ORDERED: KETOROLAC TROMETHAMINE 30 MG/1 ML VIAL IVPUSH ONE (16:28)
[2022-10-04] MEDS ORDERED: KETOROLAC TROMETHAMINE 30 MG/1 ML VIAL ONE (17:10)
[2022-10-04] MEDS ORDERED: ACETAMINOPHEN INJECTION 100 ML IVPB ONE (17:10)
[2022-10-04 17:12] LABS: BASO % 0.8 % (0-2.0); EOS % 2.6 % (0-4.5); HEMATOCRIT 33.1 % (32.4-45.2); HEMOGLOBIN 10.7 GM/dL (10.7-15.3); LYMPH % 36.5 % (8-40); MCH 25.7 pg (25.7-33.7); MCHC 32.5 g/dl (32.0-36.0); MEAN CELL VOLUME 79.2 fl (80-96); MEAN PLT VOLUME 8.2 fl (7.5-11.1); MONO % 10.3 % (3.8-10.2); NEUT % 49.8 % (42.8-82.8); PLATELET COUNT 514 10^3/uL (134-434); RBC 4.18 M/mm3 (3.60-5.2); RDW 17.7 % (11.6-15.6); WHITE BLOOD COUNT 5.1 K/mm3 (4.0-10.0)
[2022-10-04 17:20] LABS: INR 1.16 (0.83-1.09); PROTHROMBIN TIME (PATIENT) 13.4 SEC (9.7-13.0)
[2022-10-04 17:26] LABS: POTASSIUM 4.5 mmol/L (3.5-5.1)
[2022-10-04 17:28] LABS: CALCIUM 9.2 mg/dL (8.5-10.1)
[2022-10-04 17:29] LABS: ALBUMIN 3.7 g/dl (3.4-5.0); BLOOD UREA NITROGEN 8.8 mg/dL (7-18)
[2022-10-04 17:32] LABS: CREATININE 0.6 mg/dL (0.55-1.3)
[2022-10-04 17:33] LABS: BILIRUBIN,TOTAL 0.3 mg/dL (0.2-1)
[2022-10-04 17:34] LABS: TOT PROT 7.8 g/dl (6.4-8.2)
== END 2022-10-04 18:30 | disposition home or self-care (01) ==
LOC: JER 15:14
PROC: 3E033NZ Introduction of Analgesics, Hypnotics, Sedatives into Peripheral Vein, Percutaneous Approach (ICD-10-PCS; principal; 2022-10-04)
PROC: 3E033GC Introduction of Other Therapeutic Substance into Peripheral Vein, Percutaneous Approach (ICD-10-PCS; 2022-10-04)
DX: R07.89 Other chest pain (principal); M54.6 Pain in thoracic spine
CPT/HCPCS: 36415; 71046-TC-FY; 80053; 84484; 85025; 85610; 86850; 86900; 86901; 93005; 93010; 99285-25

== ENCOUNTER 2023-04-21 09:42 | Emergency (ER) | payer OTHER ==
[2023-04-21 09:51] VITALS: BMI 33.6
[2023-04-21] MEDS ORDERED: DEXAMETHASONE SOD PHOSPHATE 10 MG/1 ML VIAL IM ONE (10:07)
[2023-04-21] MEDS ORDERED: DEXAMETHASONE SOD PHOSPHATE 10 MG/1 ML VIAL ONE (10:12)
[2023-04-21] MEDS: ALBUTEROL SO4 2.5/IPRATROPIUM 0.5 INH SOL 3 ML VIAL.NEB. NEB SCH ×4 (10:24→11:00)
[2023-04-21 12:59] VITALS: BP 116/70; PULSE 86; RESP 20; TEMP 98.7
== END 2023-04-21 12:59 | disposition home or self-care (01) ==
LOC: JER 09:42
PROC: 3E023GC Introduction of Other Therapeutic Substance into Muscle, Percutaneous Approach (ICD-10-PCS; principal; 2023-04-21)
PROC: 3E0F7GC Introduction of Other Therapeutic Substance into Respiratory Tract, Via Natural or Artificial Opening (ICD-10-PCS; 2023-04-21)
DX: J45.901 Unspecified asthma with (acute) exacerbation (principal); R05.9 Cough, unspecified; Z20.822 Contact with and (suspected) exposure to COVID-19
CPT/HCPCS: 0241U-QW; 71045-TC-FY; 99284-25; J1100

== ENCOUNTER 2023-05-21 08:19 | Emergency (ER) | payer OTHER ==
[2023-05-21 08:28] VITALS: BP 142/76; PULSE 105; RESP 22; TEMP 98.4; BMI 35.4
[2023-05-21] MEDS ORDERED: ALBUTEROL SO4 2.5/IPRATROPIUM 0.5 INH SOL 3 ML VIAL.NEB. NEB ONE ×3 (08:30→09:39)
[2023-05-21] MEDS ORDERED: DEXAMETHASONE SOD PHOSPHATE 10 MG/1 ML VIAL IM ONE (09:22)
[2023-05-21] MEDS ORDERED: DEXAMETHASONE SOD PHOSPHATE 10 MG/1 ML VIAL ONE ×2 (09:28→09:39)
[2023-05-21] MEDS ORDERED: ALBUTEROL SULFATE 0.021% (0.63 MG/3 ML) VIAL.NEB NEB ONE (10:20)
[2023-05-21] MEDS ORDERED: ALBUTEROL SO4 0.083% IH SOL 2.5 MG/3 ML VIAL.NEB. NEB ONE (10:28)
[2023-05-21] MEDS ORDERED: ALBUTEROL SO4 0.042% IH SOL 1.25 MG/3 ML VIAL.NEB NEB ONE ×2 (10:29→10:32)
== END 2023-05-21 11:31 | disposition home or self-care (01) ==
LOC: JERFT 08:19 → JER 08:19 → JERFT 11:31
PROC: 3E023GC Introduction of Other Therapeutic Substance into Muscle, Percutaneous Approach (ICD-10-PCS; principal; 2023-05-21)
PROC: 3E0F7GC Introduction of Other Therapeutic Substance into Respiratory Tract, Via Natural or Artificial Opening (ICD-10-PCS; 2023-05-21)
PROC: 3E0F7GC Introduction of Other Therapeutic Substance into Respiratory Tract, Via Natural or Artificial Opening (ICD-10-PCS; 2023-05-21)
DX: J45.20 Mild intermittent asthma, uncomplicated (principal); R05.9 Cough, unspecified
CPT/HCPCS: 94640; 96372; 99284-25; J1100

== ENCOUNTER 2023-05-30 07:11 | Emergency (ER) | payer OTHER ==
[2023-05-30 07:32] VITALS: BP 138/84; PULSE 83; RESP 18; TEMP 97.8; BMI 38.0
[2023-05-30 09:02] LABS: BASO % 0.6 % (0-2.0); EOS % 4.1 % (0-4.5); HEMATOCRIT 38.2 % (32.4-45.2); HEMOGLOBIN 12.6 GM/dL (10.7-15.3); LYMPH % 27.2 % (8-40); MCH 28.3 pg (25.7-33.7); MCHC 33.1 g/dl (32.0-36.0); MEAN CELL VOLUME 85.7 fl (80-96); MEAN PLT VOLUME 8.6 fl (7.5-11.1); MONO % 9.6 % (3.8-10.2); NEUT % 58.5 % (42.8-82.8); PLATELET COUNT 415 10^3/uL (134-434); RBC 4.46 M/mm3 (3.60-5.2); RDW 17.3 % (11.6-15.6); WHITE BLOOD COUNT 7.8 K/mm3 (4.0-10.0)
[2023-05-30 09:03] LABS: HCG,QUALITATIVE URINE Positive
[2023-05-30 09:19] LABS: URINE APPEARANCE CLEAR; URINE BILIRUBIN NEGATIVE (NEGATIVE); URINE COLOR YELLOW; URINE GLUCOSE (UA) NEGATIVE (NEGATIVE); URINE KETONE NEGATIVE (NEGATIVE); URINE LEUK ESTERASE NEGATIVE (NEGATIVE); URINE NITRITE NEGATIVE (NEGATIVE); URINE PROTEIN NEGATIVE (NEGATIVE); URINE UROBILINOGEN 0.2 mg/dL (0.2-1.0)
[2023-05-30 09:23] LABS: POTASSIUM 4.3 mmol/L (3.5-5.1)
[2023-05-30 09:25] LABS: ALBUMIN 3.2 g/dl (3.4-5.0); CALCIUM 8.6 mg/dL (8.5-10.1)
[2023-05-30 09:26] LABS: BLOOD UREA NITROGEN 11.5 mg/dL (7-18)
[2023-05-30 09:29] LABS: CREATININE 0.5 mg/dL (0.55-1.3)
[2023-05-30 09:31] LABS: BILIRUBIN,TOTAL 0.4 mg/dL (0.2-1)
== END 2023-05-30 12:14 | disposition home or self-care (01) ==
LOC: JER 07:11
DX: O20.0 Threatened abortion (principal); O26.891 Other specified pregnancy related conditions, first trimester; R10.32 Left lower quadrant pain; Z3A.01 Less than 8 weeks gestation of pregnancy
CPT/HCPCS: 36415; 76801-TC; 80053; 81003; 84702; 84703; 85025; 86850; 86900; 86901; 87086; 99284-25

== ENCOUNTER 2024-04-08 12:12 | Emergency (ER) | payer OTHER ==
[2024-04-08 12:21] VITALS: BP 124/70; PULSE 84; RESP 16; TEMP 99; BMI 32.3
[2024-04-08] MEDS: ALBUTEROL SO4 2.5/IPRATROPIUM 0.5 INH SOL 3 ML VIAL.NEB. NEB SCH (13:30)
[2024-04-08] MEDS: predniSONE 20 MG TABLET (UD) PO ONE ×2 (13:52→15:42)
[2024-04-08 14:47] LABS: HCG,QUALITATIVE URINE Negative; PH,URINE 6.5 (5.0-8.0); URINE APPEARANCE CLEAR; URINE BILIRUBIN NEGATIVE (NEGATIVE); URINE COLOR YELLOW; URINE GLUCOSE (UA) NEGATIVE (NEGATIVE); URINE KETONE NEGATIVE (NEGATIVE); URINE LEUK ESTERASE NEGATIVE (NEGATIVE); URINE NITRITE NEGATIVE (NEGATIVE); URINE PROTEIN NEGATIVE (NEGATIVE); URINE UROBILINOGEN 0.2 mg/dL (0.2-1.0)
[2024-04-08] MEDS ORDERED: predniSONE 20 MG TABLET (UD) ONE (15:40)
== END 2024-04-08 16:31 | disposition home or self-care (01) ==
LOC: JERFT 12:12
PROC: 3E0F7GC Introduction of Other Therapeutic Substance into Respiratory Tract, Via Natural or Artificial Opening (ICD-10-PCS; principal; 2024-04-08)
DX: R05.1 Acute cough (principal); Z20.822 Contact with and (suspected) exposure to COVID-19
CPT/HCPCS: 0241U-QW; 81003; 84703; 87086; 94640; 99283-25